=== PATIENT | male | born 1965 | race Caucasian/White ===

== ENCOUNTER 2019-07-14 09:38 | Emergency (ER) | payer MEDICAID ==
[~2019-07-14] VITALS: Ht 188 cm; Wt 181.8 kg
--- NOTE | 2019-07-14 09:52 | NUR ---
Shannon fatima at bedside.
[2019-07-14 10:43] LABS: ALBUMIN 2.6 G/DL (3.4-5.0); ANION GAP 1 (8-16); BLOOD UREA NITROGEN 16 MG/DL (7-18); BUN/CREATININE RATIO 22.2 (5.4-32.0); CALCIUM 8.9 MG/DL (8.5-10.1); CHLORIDE 102 MMOL/L (99-107); CREATININE 0.72 MG/DL (0.60-1.10); GLUCOSE 254 MG/DL (70-104); POTASSIUM 4.3 MMOL/L (3.5-5.1); SODIUM 140 MMOL/L (135-145); TOTAL CARBON DIOXIDE 36.9 MMOL/L (24-32); eGFR > 90 ML/MIN
--- NOTE | 2019-07-14 10:43 | NUR ---
no needs at this time. We will monitor.
--- NOTE | 2019-07-14 12:00 | NUR ---
Patient up sitting on the edge of the bed at this time. patient RA oxygen in at 86%. Spoke with Terri FULTON regarding low oxygen saturation. Oppatrica stated to gait test patient on pulse ox. Patient ambulated approx. 40 feet and oxygen decreased to 82% on RA. Patient back in room now with oxygen at 3.5 L per min with a sat of 91%. Oppehuseyino aware and will place orders.
[2019-07-14] MEDS ORDERED: iohexol 350MG/ML 100ml bottle IV ONE (12:14)
[2019-07-14 12:32] LABS: BASOPHILS # (AUTO) 0.1 X10'3 (0-0.2); BASOPHILS % (AUTO) 0.8 % (0-1); EOSINOPHILS # (AUTO) 0.1 X10'3 (0-0.9); EOSINOPHILS % (AUTO) 1.2 % (0-6); HEMOGLOBIN 15.7 g/dl (14.0-17.9); LYMPHOCYTES # (AUTO) 1.3 X10'3 (1.1-4.8); LYMPHOCYTES % (AUTO) 15.2 % (21-51); MEAN CORPUSCULAR HEMOGLOBIN 27.9 PG (27.0-31.0); MEAN PLATELET VOLUME 7.2 FL (7.4-10.4); MONOCYTES # (AUTO) 0.7 X10'3 (0-0.9); MONOCYTES % (AUTO) 7.9 % (2-12); NEUTROPHILS # (AUTO) 6.4 X10'3 (1.8-7.7); NEUTROPHILS % (AUTO) 74.9 % (42-75); PLATELET COUNT 236 X10'3 (140-440); RED BLOOD COUNT 5.63 X10'6 (4.70-6.10); RED CELL DISTRIBUTION WIDTH 16.3 % (11.5-14.5); WHITE BLOOD COUNT 8.6 X10'3 (4.5-11.0)
--- NOTE | 2019-07-14 12:50 | NUR ---
patient back in the room from ct.
[2019-07-14 12:52] LABS: ALANINE AMINOTRANSFERASE 56 U/L (12-78); ALBUMIN/GLOBULIN RATIO 0.7 (1.1-1.5); ALKALINE PHOSPHATASE 86 IU/L (46-116); ASPARTATE AMINO TRANSFERASE 41 U/L (10-37); BILIRUBIN,DIRECT 0.1 MG/DL (0-0.3); BILIRUBIN,TOTAL 0.5 MG/DL (0.1-1.0); TOTAL PROTEIN 6.2 G/DL (6.4-8.2)
[2019-07-14 14:04] VITALS: BP 157/93
[2019-08-12] MEDS ORDERED: LISI40TA4 PO (17:34)
[2019-08-12] MEDS ORDERED: GLIP5POW MC (17:34)
[2019-08-12] MEDS ORDERED: FURO-150 PO (17:34)
[2019-08-12] MEDS ORDERED: LEVA0.6319 NEB (17:34)
[2019-08-12] MEDS ORDERED: RISP0.253 (17:34)
== END 2019-07-14 14:10 | disposition home or self-care (01) ==
LOC: ER 09:39
DX: I87.2 Venous insufficiency (chronic) (peripheral) (principal); G47.33 Obstructive sleep apnea (adult) (pediatric); R09.02 Hypoxemia; E11.9 Type 2 diabetes mellitus without complications; R05 Cough; F17.200 Nicotine dependence, unspecified, uncomplicated; Z56.0 Unemployment, unspecified
CPT/HCPCS: 36415; 71275; 80048; 80076; 83880; 84484; 85025; 93005; 99285; Q9967

== ENCOUNTER 2019-07-19 12:07 | Emergency (ER) | payer MEDICAID ==
[~2019-07-19] VITALS: Ht 188 cm; Wt 189.0 kg
[2019-07-19 12:48] LABS: BASOPHILS % (AUTO) 0.5 % (0-1); EOSINOPHILS # (AUTO) 0.1 X10'3 (0-0.9); EOSINOPHILS % (AUTO) 1.1 % (0-6); HEMOGLOBIN 15.9 g/dl (14.0-17.9); LYMPHOCYTES # (AUTO) 1.3 X10'3 (1.1-4.8); LYMPHOCYTES % (AUTO) 14.9 % (21-51); MEAN CORPUSCULAR HEMOGLOBIN 27.6 PG (27.0-31.0); MEAN CORPUSCULAR HGB CONC 31.7 g/dL (33.0-36.5); MEAN CORPUSCULAR VOLUME 86.8 FL (78-98); MEAN PLATELET VOLUME 6.8 FL (7.4-10.4); MONOCYTES # (AUTO) 0.7 X10'3 (0-0.9); MONOCYTES % (AUTO) 8.3 % (2-12); NEUTROPHILS # (AUTO) 6.6 X10'3 (1.8-7.7); NEUTROPHILS % (AUTO) 75.2 % (42-75); PLATELET COUNT 248 X10'3 (140-440); RED BLOOD COUNT 5.75 X10'6 (4.70-6.10); RED CELL DISTRIBUTION WIDTH 16.3 % (11.5-14.5); WHITE BLOOD COUNT 8.8 X10'3 (4.5-11.0)
[2019-07-19 13:02] LABS: ALANINE AMINOTRANSFERASE 67 U/L (12-78); ALBUMIN 2.8 G/DL (3.4-5.0); ALBUMIN/GLOBULIN RATIO 0.8 (1.1-1.5); ALKALINE PHOSPHATASE 81 IU/L (46-116); ANION GAP 0 (8-16); ASPARTATE AMINO TRANSFERASE 36 U/L (10-37); BILIRUBIN,TOTAL 0.7 MG/DL (0.1-1.0); BLOOD UREA NITROGEN 15 MG/DL (7-18); BUN/CREATININE RATIO 20.3 (5.4-32.0); CALCIUM 8.5 MG/DL (8.5-10.1); CHLORIDE 103 MMOL/L (99-107); CREATININE 0.74 MG/DL (0.60-1.10); GLUCOSE 299 MG/DL (70-104); POTASSIUM 4.6 MMOL/L (3.5-5.1); SODIUM 139 MMOL/L (135-145); TOTAL PROTEIN 6.3 G/DL (6.4-8.2); eGFR > 90 ML/MIN
[2019-07-19] MEDS ORDERED: furosemide 10 MG/1 ML 10ml inj IV ONE (13:05)
[2019-07-19 13:25] LABS: MAGNESIUM 1.8 MG/DL (1.5-2.4)
[2019-07-19 14:55] VITALS: BP 150/75
== END 2019-07-19 14:58 | disposition home or self-care (01) ==
LOC: ER 12:07
DX: R60.0 Localized edema (principal); I11.0 Hypertensive heart disease with heart failure; M79.661 Pain in right lower leg; M79.662 Pain in left lower leg; J44.9 Chronic obstructive pulmonary disease, unspecified; I50.9 Heart failure, unspecified; E11.9 Type 2 diabetes mellitus without complications; Z59.0 Homelessness; Z56.0 Unemployment, unspecified
CPT/HCPCS: 36415; 71045; 80053; 83735; 84484; 85025; 93005; 96374; 99285; J1940

== ENCOUNTER 2019-09-23 06:10 | Emergency (ER) | payer MEDICAID ==
[~2019-09-23] VITALS: Ht 188 cm; Wt 186.4 kg
[~2019-09-23 06:10] MED LIST: BENZ1TAB7 PO; FURO-150 PO; GLIP10TA11 PO; IPRA3AMP31 IH; LISI-604 PO; PRED20TA PO; RISP3TAB3 PO
[2019-09-23 06:20] VITALS: BP 135/72
[2019-09-23] MEDS ORDERED: LIDOcaine 1% W/epiNEPHrine 1:200,000 10ml vial IJ ONE (06:30)
[2019-09-23] MEDS ORDERED: SULF1TAB49 PO (06:31)
== END 2019-09-23 07:03 | disposition home or self-care (01) ==
LOC: ER 06:10
DX: L02.415 Cutaneous abscess of right lower limb (principal); M79.651 Pain in right thigh; I11.0 Hypertensive heart disease with heart failure; I50.9 Heart failure, unspecified; J45.909 Unspecified asthma, uncomplicated; J43.9 Emphysema, unspecified; E11.9 Type 2 diabetes mellitus without complications; F15.90 Other stimulant use, unspecified, uncomplicated; Z86.14 Personal history of Methicillin resistant Staphylococcus aureus infection; Z98.890 Other specified postprocedural states; Z56.0 Unemployment, unspecified; Z59.0 Homelessness; Z79.899 Other long term (current) drug therapy; Z79.2 Long term (current) use of antibiotics
CPT/HCPCS: 10060; 99283

== ENCOUNTER 2019-11-07 09:04 | Inpatient (IN) | payer MEDICAID ==
[~2019-11-07] VITALS: Ht 188 cm; Wt 190.9 kg
[2019-11-07 09:53] LABS: BASOPHILS # (AUTO) 0.1 X10'3 (0-0.2); BASOPHILS % (AUTO) 0.6 % (0-1); EOSINOPHILS # (AUTO) 0.1 X10'3 (0-0.9); EOSINOPHILS % (AUTO) 1.4 % (0-6); HEMATOCRIT 49.2 % (42.0-52.0); LYMPHOCYTES # (AUTO) 1.5 X10'3 (1.1-4.8); LYMPHOCYTES % (AUTO) 14.7 % (21-51); MEAN CORPUSCULAR HEMOGLOBIN 28.7 PG (27.0-31.0); MEAN CORPUSCULAR HGB CONC 32.5 g/dL (33.0-36.5); MEAN CORPUSCULAR VOLUME 88.5 FL (78-98); MONOCYTES # (AUTO) 0.8 X10'3 (0-0.9); MONOCYTES % (AUTO) 7.7 % (2-12); NEUTROPHILS # (AUTO) 7.6 X10'3 (1.8-7.7); NEUTROPHILS % (AUTO) 75.6 % (42-75); PLATELET COUNT 206 X10'3 (140-440); RED BLOOD COUNT 5.56 X10'6 (4.70-6.10); RED CELL DISTRIBUTION WIDTH 16.8 % (11.5-14.5)
--- NOTE | 2019-11-07 10:00 | NUR ---
Attempted to call report. Told "there was no RN for this pt." Ortho staff will call when resolved. ED CRMahamed Brannon notified.
[2019-11-07 10:07] LABS: ALANINE AMINOTRANSFERASE 36 U/L (12-78); ALBUMIN 2.9 G/DL (3.4-5.0); ALBUMIN/GLOBULIN RATIO 0.9 (1.1-1.5); ALKALINE PHOSPHATASE 66 IU/L (46-116); ANION GAP -2 (8-16); ASPARTATE AMINO TRANSFERASE 30 U/L (10-37); BILIRUBIN,TOTAL 0.5 MG/DL (0.1-1.0); BLOOD UREA NITROGEN 17 MG/DL (7-18); CALCIUM 8.3 MG/DL (8.5-10.1); CHLORIDE 102 MMOL/L (99-107); CREATININE 0.74 MG/DL (0.60-1.10); GLUCOSE 216 MG/DL (70-104); POTASSIUM 4.6 MMOL/L (3.5-5.1); SODIUM 138 MMOL/L (135-145); TOTAL CARBON DIOXIDE 37.9 MMOL/L (24-32); TOTAL PROTEIN 6.3 G/DL (6.4-8.2); eGFR > 90 ML/MIN
[2019-11-07 10:14] LABS: TROPONIN I < 0.04 NG/ML (0.0-0.05)
--- NOTE | 2019-11-07 10:20 | NUR ---
Called ortho x2 for report.
[2019-11-07] MEDS ORDERED: furosemide 10 MG/1 ML 10ml inj IV ONE (10:30)
[2019-11-07 10:31] LABS: ABG BASE EXCESS 6.4 mmol/L (-2.0-2.0); ABG HCO3 37.9 mmol/L (22.0-26.0); ABG OXYGEN SATURATION 86.9 % (94-97); ABG PCO2 (T) 87.1 mmHg (35.0-48.0); ABG PO2 (T) 61.7 mmHg (75.0-100.0); ALLEN'S TEST POSITIVE; FCOHb 2.1 % (0.0-3.9); FLOW 4 L/min; FMetHb 0.2 % (0.0-1.5); FO2Hb 84.9 % (94-97); TOTAL HEMOGLOBIN 17.1 G/dl (14.0-18.0)
[2019-11-07] MEDS ORDERED: HYDROcodone/acetaminophen 5mg/325mg tablet PO PRN ×2 (11:05→15:20)
[2019-11-07] MEDS ORDERED: magnesium Cl slow-release 64mg tablet PO PRN (11:05)
[2019-11-07] MEDS ORDERED: magnesium 4gm in 100ml NS 100 ML IV PRN (11:05)
[2019-11-07] MEDS ORDERED: metoclopramide 5 mg/ml inj IV PRN (11:05)
[2019-11-07] MEDS ORDERED: potassium CL 10mEq/100ml bag 100 ML IV PRN ×2 (11:05)
[2019-11-07] MEDS ORDERED: ondansetron/PF 4mg/2ml inj IV PRN (11:05)
[2019-11-07] MEDS ORDERED: bisacodyl 10mg suppository rectal RC PRN (11:05)
[2019-11-07] MEDS ORDERED: HYDROcodone/acetaminophen 10/325mg tab PO PRN ×2 (11:05→15:20)
[2019-11-07] MEDS ORDERED: mag hydrox/Alum hydrox/simeth 30ml oral suspension PO PRN (11:05)
[2019-11-07] MEDS ORDERED: acetaminophen 325mg tablet PO PRN ×2 (11:05)
[2019-11-07] MEDS ORDERED: potassium Cl 20 mEq SR tablet PO PRN ×2 (11:05)
[2019-11-07] MEDS ORDERED: magnesium 2GM in 50ml NS 50 ML IV PRN (11:05)
[2019-11-07] MEDS ORDERED: magnesium hydroxide 30ml (MOM) UD suspension PO PRN (11:05)
[2019-11-07] MEDS ORDERED: ALBU18HF2 IH (12:34)
[2019-11-07] MEDS ORDERED: BUDE10.27 IH (12:34)
[2019-11-07] MEDS ORDERED: GLIP10TA11 PO (12:34)
[2019-11-07] MEDS ORDERED: BENZ1TAB7 PO (12:34)
[2019-11-07] MEDS ORDERED: RISP3TAB3 PO (12:34)
[2019-11-07] MEDS ORDERED: FURO-149 PO (12:34)
[2019-11-07] MEDS ORDERED: LISI-604 PO (12:34)
[2019-11-07] MEDS ORDERED: HUM10VIA SQ (12:34)
[2019-11-07 12:36] LABS: ABG BASE EXCESS 5.7 mmol/L (-2.0-2.0); ABG HCO3 36.5 mmol/L (22.0-26.0); ABG OXYGEN SATURATION 96.9 % (94-97); ABG PCO2 (T) 81.7 mmHg (35.0-48.0); ABG PO2 (T) 102.8 mmHg (75.0-100.0); ALLEN'S TEST POSITIVE; FCOHb 1.7 % (0.0-3.9); FMetHb 0.3 % (0.0-1.5); RESPIRATORY RATE 20 b/min
--- NOTE | 2019-11-07 12:50 | NUR ---
Debora PENDLETON from [facility] called for report
--- NOTE | 2019-11-07 12:53 | NUR ---
Patient in room ED 1. I have received report from KEERTHI Holder and had the opportunity to ask questions and assume patient care.
[2019-11-07 13:00] VITALS: BP 144/82
[2019-11-07 15:00] VITALS: BP 114/65
[2019-11-07 15:06] LABS: ABG OXYGEN SATURATION 98.2 % (94-97); ABG PCO2 (T) 83.6 mmHg (35.0-48.0); ABG PO2 (T) 127.9 mmHg (75.0-100.0); ALLEN'S TEST POSITIVE; FCOHb 1.4 % (0.0-3.9); FMetHb 0.2 % (0.0-1.5); FO2Hb 96.6 % (94-97); RESPIRATORY RATE 24 b/min; TIDAL VOLUME 724 mL; TOTAL HEMOGLOBIN 16.9 G/dl (14.0-18.0)
--- NOTE | 2019-11-07 15:17 | NUR ---
PAGER ID: [phone] MESSAGE: Jose Martin Moreno [phone]. ABG just back CO2 83.6, which is higher than his last one 3 hours ago in ER, which was 81.7. Worried about him. Please advise, Debora DELAROSA [phone]
[2019-11-07 16:16] LABS: ABG BASE EXCESS 5.1 mmol/L (-2.0-2.0); ABG HCO3 35.6 mmol/L (22.0-26.0); ABG OXYGEN SATURATION 96.4 % (94-97); ABG PCO2 (T) 79.9 mmHg (35.0-48.0); ABG PO2 (T) 93.6 mmHg (75.0-100.0); ALLEN'S TEST POSITIVE; FCOHb 1.4 % (0.0-3.9); FMetHb 0.2 % (0.0-1.5); FO2Hb 94.9 % (94-97); RESPIRATORY RATE 25 b/min; TOTAL HEMOGLOBIN 16.6 G/dl (14.0-18.0)
[2019-11-07 17:18] LABS: URINE AMPHETAMINE SCREEN NEGATIVE (Neg); URINE BARBITUATE SCREEN NEGATIVE (Neg); URINE BENZODIAZEPINES SCREEN NEGATIVE (Neg); URINE CANNABINOID SCREEN NEGATIVE (Neg); URINE COCAINE SCREEN NEGATIVE (Neg); URINE METHADONE SCREEN NEGATIVE (Neg); URINE OPIATE SCREEN NEGATIVE (Neg); URINE PHENCYCLIDINE SCREEN NEGATIVE (Neg)
[2019-11-07 17:30] LABS: CLARITY,URINE CLEAR (Clear); COLOR,URINE YELLOW (Yellow); GLUCOSE, URINE >=1000 mg/dl (Neg); KETONES,URINE NEGATIVE (Neg); LEUKOCYTE ESTERASE ,URINE NEGATIVE (Neg); NITRITES, URINE NEGATIVE (Neg); OCCULT BLOOD,URINE NEGATIVE (Neg); PH,URINE 6.5 (4.8-8.0); PROTEIN,URINE 30 mg/dl (Neg)
[2019-11-07 17:33] LABS: UA COLLECTION TYPE VOIDED
[2019-11-07 17:39] LABS: MUCUS STRANDS FEW /LPF (Neg); SQUAMOUS EPITHELIAL CELL,UR FEW /LPF (FEW)
[2019-11-07 17:40] LABS: BACTERIA,URINE NONE SEEN /HPF (Neg); RBC,URINE 0-2 /HPF (0-2); WBC,URINE NONE SEEN /HPF (0-4)
--- NOTE | 2019-11-07 17:58 | NUR ---
Awaiting orders from Nepo...PAGER ID: [phone] MESSAGE: Arlene Moreno [phone]. Wishes to be a DNR, please come and talk to him when you can. Thanks, Debora DELAROSA [phone]
[2019-11-07 18:00] VITALS: BP 143/81
--- NOTE | 2019-11-07 18:30 | NUR ---
Patient in room PCU 3018. I have received report from Debora PENDLETON and had the opportunity to ask questions and assume patient care.
--- NOTE | 2019-11-07 18:48 | NUR ---
Problems reprioritized. Patient report given, questions answered & plan of care reviewed with Yong RN.
--- NOTE | 2019-11-07 19:05 | NUR ---
PAGER ID: [phone] MESSAGE: Sukhwinder Moreno, [id number]- pt is DM2 with a dinner BS of 190. no inulin orders are in, please place DM medication orders.
[2019-11-07] MEDS ORDERED: ipratropium/albuterol 3ml nebule NEB PRN (19:15)
[2019-11-07] MEDS ORDERED: methylPREDNISolone sod succ 125mg/2ml vial IV ONE (19:15)
[2019-11-07] MEDS: methylPREDNISolone sod succ 125mg/2ml vial IV SCH (19:32)
[2019-11-07] MEDS: K and/or MAG REPLACEMENT MC SCH (19:41)
[2019-11-07] MEDS ORDERED: budesonide 0.5mg/2ml UD nebule IH SCH (20:00)
[2019-11-07] MEDS ORDERED: furosemide 40mg/4ml inj IV SCH (20:00)
[2019-11-07] MEDS ORDERED: enoxaparin 40mg/0.4ml syringe SQ SCH (20:00)
[2019-11-07] MEDS: albuterol 2.5 MG/3 ML nebule NEB SCH (20:37)
[2019-11-07] MEDS ORDERED: temazepam 15mg capsule PO PRN (21:00)
[2019-11-07] MEDS ORDERED: glucagon, human recombinant 1mg kit SUBCUT PRN (21:45)
[2019-11-07] MEDS ORDERED: dextrose 50%-water 50ml dispensing syringe IV PRN ×2 (21:45)
[2019-11-07] MEDS ORDERED: MESSAGE TO PHARMACY PO ONE (21:45)
[2019-11-07] MEDS ORDERED: dextrose ORAL solution 15 GM/59 ML bottle PO PRN ×2 (21:45)
[2019-11-07 22:00] VITALS: BP 133/73
--- NOTE | 2019-11-07 22:15 | NUR ---
NOTIFIED PAGER ID: [phone] MESSAGE: Sukhwinder Moreno, [id number]- pt O2 sat dropping to 70s with NC@4L, pt refuses to wear Bipap, he states he is DNR because he doest want bipap and that he just wants "god to take him in his sleep". please call [phone] Yong PENDLETON
[2019-11-07 22:52] LABS: HEMOGLOBIN A1C 9.9 % (4.5-6.2)
[2019-11-07] MEDS ORDERED: ipratropium/albuterol 3ml nebule NEB SCH (23:00)
[2019-11-08 02:00] VITALS: BP 107/64
[2019-11-08] MEDS: methylPREDNISolone sod succ 125mg/2ml vial IV SCH (02:00)
--- NOTE | 2019-11-08 02:27 | NUR ---
pt pulled his IV out in his sleep, he is refusing a new one at this time and the IV medication solumedrol that is due at this time. pt states that he may be willing to try a new IV start later.
[2019-11-08] MEDS: albuterol 2.5 MG/3 ML nebule NEB SCH (03:05)
[2019-11-08 05:56] LABS: ALANINE AMINOTRANSFERASE 41 U/L (12-78); ALBUMIN 3.2 G/DL (3.4-5.0); ALBUMIN/GLOBULIN RATIO 0.7 (1.1-1.5); ALKALINE PHOSPHATASE 81 IU/L (46-116); ANION GAP 3 (8-16); ASPARTATE AMINO TRANSFERASE 28 U/L (10-37); BILIRUBIN,TOTAL 0.5 MG/DL (0.1-1.0); BLOOD UREA NITROGEN 23 MG/DL (7-18); CHLORIDE 98 MMOL/L (99-107); CREATININE 0.82 MG/DL (0.60-1.10); GLUCOSE 383 MG/DL (70-104); MAGNESIUM 1.9 MG/DL (1.5-2.4); SODIUM 136 MMOL/L (135-145); TOTAL CARBON DIOXIDE 34.7 MMOL/L (24-32); TOTAL PROTEIN 7.5 G/DL (6.4-8.2); eGFR > 90 ML/MIN
[2019-11-08 06:01] LABS: BASOPHILS % (AUTO) 0.2 % (0-1); EOSINOPHILS % (AUTO) 0 % (0-6); HEMATOCRIT 54.6 % (42.0-52.0); HEMOGLOBIN 17.8 g/dl (14.0-17.9); LYMPHOCYTES # (AUTO) 0.6 X10'3 (1.1-4.8); LYMPHOCYTES % (AUTO) 7.1 % (21-51); MEAN CORPUSCULAR HEMOGLOBIN 29.3 PG (27.0-31.0); MEAN CORPUSCULAR HGB CONC 32.5 g/dL (33.0-36.5); MEAN CORPUSCULAR VOLUME 90.1 FL (78-98); MEAN PLATELET VOLUME 7.4 FL (7.4-10.4); MONOCYTES # (AUTO) 0.1 X10'3 (0-0.9); MONOCYTES % (AUTO) 0.8 % (2-12); NEUTROPHILS # (AUTO) 7.4 X10'3 (1.8-7.7); NEUTROPHILS % (AUTO) 91.9 % (42-75); PLATELET COUNT 234 X10'3 (140-440); RED BLOOD COUNT 6.06 X10'6 (4.70-6.10); RED CELL DISTRIBUTION WIDTH 16.9 % (11.5-14.5); WHITE BLOOD COUNT 8.1 X10'3 (4.5-11.0)
--- NOTE | 2019-11-08 06:26 | NUR ---
Problems reprioritized. Patient report given, questions answered & plan of care reviewed with Debora PENDLETON.
--- NOTE | 2019-11-08 06:37 | NUR ---
Patient in room PCU 3018. I have received report from Everardo PENDLETON and had the opportunity to ask questions and assume patient care.
--- NOTE | 2019-11-08 06:37 | NUR ---
Patient in room PCU 3018. I have received report from KEERTHI Beach and had the opportunity to ask questions and assume patient care.
[2019-11-08 07:00] VITALS: BP 161/89
--- NOTE | 2019-11-08 07:07 | NUR ---
Page to Sarah... PAGER ID: [phone] MESSAGE: Patient Sukhwinder Moreno [id number]. Went on Comfort care last night per nurse but patient seems confused about it. Call me when you can I will explain. Thank, Debora Radha [phone]
--- NOTE | 2019-11-08 07:52 | NUR ---
Paged Dr Agustin "PAGER ID: [phone] MESSAGE: [phone] Margo [phone] Sukhwinder Moreno patient went DNR/Comfort Care last night. Can we get a house convenience order with no tele?"
[2019-11-08] MEDS ORDERED: enoxaparin 40mg/0.4ml syringe SUBCUT SCH (08:00)
[2019-11-08] MEDS ORDERED: benztropine 1mg tablet PO SCH (08:00)
[2019-11-08] MEDS: K and/or MAG REPLACEMENT MC SCH (08:00)
[2019-11-08] MEDS ORDERED: risperiDONE 2mg tablet PO SCH (08:00)
[2019-11-08] MEDS ORDERED: lisinopril 5mg tablet PO SCH (08:00)
[2019-11-08] MEDS: insulin Lispro (HumaLOG) vial - multi-dose SQ SCH ×2 (08:49→12:59)
[2019-11-08] MEDS ORDERED: furosemide 40mg tablet PO SCH (10:05)
--- NOTE | 2019-11-08 10:07 | NUR ---
O2 Sat at rest on room air:_84__% If below 89%: Recovery O2 Sat at rest on _2__LPM:_91__% via__nasal cannula (mask/nasal cannula, etc..) No further documentation is necessary. If O2 Sat did not drop below 89% on room air,ambulate patient on room air. O2 Sat while ambulating on room air:___% Recovery O2 Sat while ambulating on ___LPM:___% No further documentation is necessary. If patient does not drop below 89% while ambulating, he/she does not qualify for home O2.
[2019-11-08] MEDS ORDERED: HYDROcodone/acetaminophen 5mg/325mg tablet PO PRN (10:42)
[2019-11-08 11:00] VITALS: BP 114/73
--- NOTE | 2019-11-08 11:07 | NUR ---
Pt has no IV, doctor aware.
[2019-11-08 15:00] VITALS: BP 97/51
--- NOTE | 2019-11-08 15:19 | NUR ---
DM consult: Pt with A1c 9.9%. Attempted visit with pt however pt sleeping and did not wake with verbal cues. Written DM education and RD contact information left at patient's bedside. A1c is down from 10.3% in July of this year per records. Noted that pt documented with 100% PO intake on heart healthy CHO controlled diet, d/w dietary to send double protein TID for satiety. Will continue to follow and monitor need for f/u verbal education. Addendum: 11/08/19 at [address] Amended: Links added.
--- NOTE | 2019-11-08 17:55 | NUR ---
Pt stable for discharge per MD order, all discharge instructions reviewed with patient and all questions answered. New prescription faxed to pharmacy. PIV discontinued, cannula intact. Telemetry discontinued, telephone assembler notified. All belongings collected and sent with patient. Patient picked up by taxi, wheeled to lobby by staff.
[2019-11-08] MEDS ORDERED: insulin glargine (Lantus) pen - multi-dose SQ SCH (21:00)
== END 2019-11-08 17:27 | disposition home or self-care (01) | DRG 133 ==
LOC: ER 09:04 → ED HOLD 11:05 → PCU 3S 13:25
PROVIDERS: ADMIT Family Medicine; ATTEND Family Medicine
PROC: 5A09357 Assistance with Respiratory Ventilation, Less than 24 Consecutive Hours, Continuous Positive Airway Pressure (ICD-10-PCS; principal; 2019-11-07)
DX: J96.01 Acute respiratory failure with hypoxia (principal); E11.65 Type 2 diabetes mellitus with hyperglycemia; E66.01 Morbid (severe) obesity due to excess calories; G93.41 Metabolic encephalopathy; I11.0 Hypertensive heart disease with heart failure; I50.33 Acute on chronic diastolic (congestive) heart failure; J43.9 Emphysema, unspecified; Z66 Do not resuscitate; F15.90 Other stimulant use, unspecified, uncomplicated; F32.9 Major depressive disorder, single episode, unspecified; J96.02 Acute respiratory failure with hypercapnia; Z59.0 Homelessness; Z87.891 Personal history of nicotine dependence; Z90.81 Acquired absence of spleen; Z68.43 Body mass index [BMI] 50.0-59.9, adult
CPT/HCPCS: 36415; 36600; 71046; 80053; 80305; 81001; 82803; 82948; 83036; 83735; 83880; 84484; 85018; 85025; 87081; 93005; 94640; 94660; 94760; 99285; G0378; J1650; J1815; J1940; J2930; J7626

== ENCOUNTER 2019-12-14 11:44 | Inpatient (IN) | payer MEDICAID ==
[~2019-12-14] VITALS: Ht 188 cm; Wt 204.6 kg
[~2019-12-14 11:44] MED LIST changes: +ALBU18HF2 IH; -BENZ1TAB7 PO; +FURO-149 PO; -FURO-150 PO; +HUM10VIA SQ; -IPRA3AMP31 IH; -PRED20TA PO
[2019-12-14] MEDS ORDERED: acetaminophen 325mg tablet PO STA (11:51)
[2019-12-14] MEDS ORDERED: piperacillin/tazo 3.375gm/50ml 50 ML IV ONE (11:55)
[2019-12-14] MEDS ORDERED: vancomycin/NS 1 GM ADD-VANTAGE 250 ML IV ONE (11:55)
[2019-12-14 12:10] LABS: BASOPHILS % (AUTO) 0.4 % (0-1); EOSINOPHILS # (AUTO) 0.2 X10'3 (0-0.9); EOSINOPHILS % (AUTO) 1.9 % (0-6); HEMOGLOBIN 15.8 g/dl (14.0-17.9); LYMPHOCYTES # (AUTO) 1.4 X10'3 (1.1-4.8); LYMPHOCYTES % (AUTO) 16.1 % (21-51); MEAN CORPUSCULAR HGB CONC 32.2 g/dL (33.0-36.5); MEAN CORPUSCULAR VOLUME 90.1 FL (78-98); MONOCYTES # (AUTO) 0.8 X10'3 (0-0.9); MONOCYTES % (AUTO) 9.2 % (2-12); NEUTROPHILS # (AUTO) 6.1 X10'3 (1.8-7.7); NEUTROPHILS % (AUTO) 72.4 % (42-75); PLATELET COUNT 200 X10'3 (140-440); RED BLOOD COUNT 5.43 X10'6 (4.70-6.10); RED CELL DISTRIBUTION WIDTH 14.8 % (11.5-14.5); WHITE BLOOD COUNT 8.4 X10'3 (4.5-11.0)
[2019-12-14] MEDS ORDERED: furosemide 10 MG/1 ML 10ml inj IV ONE (12:50)
[2019-12-14 12:51] LABS: ALANINE AMINOTRANSFERASE 30 U/L (12-78); ALBUMIN 2.9 G/DL (3.4-5.0); ALBUMIN/GLOBULIN RATIO 0.8 (1.1-1.5); ALKALINE PHOSPHATASE 71 IU/L (46-116); ANION GAP -1 (8-16); ASPARTATE AMINO TRANSFERASE 21 U/L (10-37); BILIRUBIN,TOTAL 0.5 MG/DL (0.1-1.0); BLOOD UREA NITROGEN 17 MG/DL (7-18); BUN/CREATININE RATIO 27.9 (5.4-32.0); CALCIUM 8.9 MG/DL (8.5-10.1); CHLORIDE 100 MMOL/L (99-107); CREATININE 0.61 MG/DL (0.60-1.10); GLUCOSE 248 MG/DL (70-104); POTASSIUM 4.4 MMOL/L (3.5-5.1); SODIUM 137 MMOL/L (135-145); TOTAL CARBON DIOXIDE 37.8 MMOL/L (24-32); TOTAL PROTEIN 6.5 G/DL (6.4-8.2); eGFR > 90 ML/MIN
[2019-12-14 14:45] LABS: CLARITY,URINE CLEAR (Clear); COLOR,URINE YELLOW (Yellow); GLUCOSE, URINE >=1000 mg/dl (Neg); KETONES,URINE NEGATIVE (Neg); LEUKOCYTE ESTERASE ,URINE NEGATIVE (Neg); NITRITES, URINE NEGATIVE (Neg); OCCULT BLOOD,URINE NEGATIVE (Neg); PH,URINE 6.5 (4.8-8.0); PROTEIN,URINE TRACE mg/dl (Neg)
[2019-12-14 14:49] LABS: UA COLLECTION TYPE NON-SPECIFIED
[2019-12-14 15:00] LABS: BACTERIA,URINE FEW /HPF (Neg); SQUAMOUS EPITHELIAL CELL,UR MODERATE /LPF (FEW)
[2019-12-14 15:01] LABS: RBC,URINE 0-2 /HPF (0-2); WBC,URINE 0-4 /HPF (0-4)
[2019-12-14] MEDS ORDERED: magnesium Cl slow-release 64mg tablet PO PRN (15:20)
[2019-12-14] MEDS ORDERED: MESSAGE TO PHARMACY PO ONE (15:20)
[2019-12-14] MEDS ORDERED: mag hydrox/Alum hydrox/simeth 30ml oral suspension PO PRN (15:20)
[2019-12-14] MEDS ORDERED: magnesium 4gm in 100ml NS 100 ML IV PRN (15:20)
[2019-12-14] MEDS ORDERED: magnesium 2GM in 50ml NS 50 ML IV PRN (15:20)
[2019-12-14] MEDS ORDERED: glucagon, human recombinant 1mg kit SUBCUT PRN (15:20)
[2019-12-14] MEDS ORDERED: potassium Cl 20 mEq SR tablet PO PRN ×2 (15:20)
[2019-12-14] MEDS ORDERED: dextrose ORAL solution 15 GM/59 ML bottle PO PRN ×2 (15:20)
[2019-12-14] MEDS ORDERED: morphine 2 MG/ML inj. syringe IV PRN ×2 (15:20)
[2019-12-14] MEDS ORDERED: potassium CL 10mEq/100ml bag 100 ML IV PRN ×2 (15:20)
[2019-12-14] MEDS ORDERED: HYDROcodone/acetaminophen 5mg/325mg tablet PO PRN (15:20)
[2019-12-14] MEDS ORDERED: dextrose 50%-water 50ml dispensing syringe IV PRN ×2 (15:20)
[2019-12-14] MEDS ORDERED: HYDROcodone/acetaminophen 10/325mg tab PO PRN (15:20)
[2019-12-14] MEDS ORDERED: ondansetron/PF 4mg/2ml inj IV PRN (15:20)
[2019-12-14] MEDS ORDERED: acetaminophen 325mg tablet PO PRN ×2 (15:20)
[2019-12-14] MEDS ORDERED: albuterol 2.5 MG/3 ML nebule NEB PRN (15:45)
[2019-12-14 16:30] VITALS: BP 119/59
--- NOTE | 2019-12-14 18:15 | NUR ---
Problems reprioritized. Patient report given, questions answered & plan of care reviewed with KEERTHI Palencia.
[2019-12-14 18:18] VITALS: BP 116/71
--- NOTE | 2019-12-14 19:24 | NUR ---
Patient is non-compliant. Refused the blood draw for the troponin for 1750.
[2019-12-14] MEDS: docusate sod 100mg capsule PO SCH (19:57)
[2019-12-14] MEDS: furosemide 10 MG/1 ML 10ml inj IV SCH (19:58)
[2019-12-14] MEDS: heparin, porcine 5000 units/ml vial SQ SCH (19:58)
[2019-12-14] MEDS ORDERED: HumuLIN NPH/Reg 70/30 insulin 10ml vial SQ SCH (20:00)
[2019-12-14] MEDS: K and/or MAG REPLACEMENT MC SCH (20:00)
[2019-12-14] MEDS: insulin glargine (Lantus) pen - multi-dose SQ SCH (21:00)
[2019-12-14] MEDS ORDERED: temazepam 15mg capsule PO PRN (21:00)
--- NOTE | 2019-12-14 21:00 | NUR ---
Patient is non-compliant. Refused to check his blood sugar.
[2019-12-14 23:26] VITALS: BP 126/64
--- NOTE | 2019-12-14 23:56 | NUR ---
Patient is non-compliant refused the 12hr blood draw for the troponin at 2351. Shell, the charge nurse is aware of the issue.
[2019-12-15] VITALS (7 sets, daily range): BP systolic 89–131; BP diastolic 36–74
--- NOTE | 2019-12-15 00:31 | NUR ---
Patient has hx of sleep apnea, and his O2 Sat drops to low to mid 70's despite being on 2L O2 NC. Patient refused change in position and does not want to be bothered at all despite educating him.
--- NOTE | 2019-12-15 03:14 | NUR ---
Called DR. Hutchinson regarding the patient's O2 Sat being unstable in 2L O2 NC to 50's, 60's. Patient was put on 4L O2 NC and the O2 sat still in 70's. The non-rebreather applied to the patient the O2 sat is at 98. Dr. Hutchinson acknowledge the issue. No orders were given at this time.
--- NOTE | 2019-12-15 03:27 | NUR ---
Patient refused to check his blood sugar at this time.
--- NOTE | 2019-12-15 03:31 | NUR ---
Patient refuse to check his vitals at this time. Charge Nurse- Yoselin is aware of the issue. Addendum: 12/15/19 at 0339 by Talha Fernandez RN Patient on 3L O2 NC. Does not want the non-rebreather. O2 Sat in 70's to low 90s, and unstable.
[2019-12-15 06:00] LABS: ALANINE AMINOTRANSFERASE 32 U/L (12-78); ALBUMIN 3.2 G/DL (3.4-5.0); ALBUMIN/GLOBULIN RATIO 0.8 (1.1-1.5); ALKALINE PHOSPHATASE 78 IU/L (46-116); ANION GAP 2 (8-16); ASPARTATE AMINO TRANSFERASE 26 U/L (10-37); BILIRUBIN,TOTAL 0.5 MG/DL (0.1-1.0); BLOOD UREA NITROGEN 16 MG/DL (7-18); BUN/CREATININE RATIO 20.5 (5.4-32.0); CALCIUM 9.2 MG/DL (8.5-10.1); CHLORIDE 97 MMOL/L (99-107); CREATININE 0.78 MG/DL (0.60-1.10); GLUCOSE 302 MG/DL (70-104); MAGNESIUM 1.8 MG/DL (1.5-2.4); POTASSIUM 4.5 MMOL/L (3.5-5.1); SODIUM 140 MMOL/L (135-145); TOTAL PROTEIN 7.3 G/DL (6.4-8.2); TROPONIN I < 0.04 NG/ML (0.0-0.05); eGFR > 90 ML/MIN
[2019-12-15 06:02] LABS: BASOPHILS % (AUTO) 0.5 % (0-1); EOSINOPHILS # (AUTO) 0.3 X10'3 (0-0.9); EOSINOPHILS % (AUTO) 2.6 % (0-6); HEMOGLOBIN 16.5 g/dl (14.0-17.9); LYMPHOCYTES # (AUTO) 1.9 X10'3 (1.1-4.8); LYMPHOCYTES % (AUTO) 19.2 % (21-51); MEAN CORPUSCULAR HEMOGLOBIN 29.4 PG (27.0-31.0); MEAN CORPUSCULAR HGB CONC 31.6 g/dL (33.0-36.5); MEAN CORPUSCULAR VOLUME 92.8 FL (78-98); MEAN PLATELET VOLUME 7.3 FL (7.4-10.4); MONOCYTES # (AUTO) 0.9 X10'3 (0-0.9); MONOCYTES % (AUTO) 9.4 % (2-12); NEUTROPHILS # (AUTO) 6.6 X10'3 (1.8-7.7); NEUTROPHILS % (AUTO) 68.3 % (42-75); PLATELET COUNT 252 X10'3 (140-440); RED BLOOD COUNT 5.61 X10'6 (4.70-6.10); RED CELL DISTRIBUTION WIDTH 15.1 % (11.5-14.5); WHITE BLOOD COUNT 9.7 X10'3 (4.5-11.0)
--- NOTE | 2019-12-15 06:15 | NUR ---
Problems reprioritized. Patient report given to HeribertoRN, questions answered & plan of care reviewed with .
[2019-12-15 06:24] LABS: TOTAL CARBON DIOXIDE 41.2 MMOL/L (24-32)
--- NOTE | 2019-12-15 06:45 | NUR ---
PAGER ID: [phone] MESSAGE: [phone]. pt. Sukhwinder Moreno. pt. CO2 is 41.2. thank you. Cyndi [phone]
--- NOTE | 2019-12-15 06:55 | NUR ---
Patient in room MED 309. I have received report from KEERTHI Palencia and had the opportunity to ask questions and assume patient care.
--- NOTE | 2019-12-15 07:42 | NUR ---
PAGER ID: [phone] MESSAGE: leo 309. pt. Sukhwinder Moreno. pt. CO2 came back at 41.2. thank you. Cyndi [phone].
[2019-12-15] MEDS: docusate sod 100mg capsule PO SCH ×2 (08:00→19:48)
[2019-12-15] MEDS: K and/or MAG REPLACEMENT MC SCH ×2 (08:00→19:48)
[2019-12-15] MEDS ORDERED: lisinopril 5mg tablet PO SCH (08:00)
[2019-12-15] MEDS: heparin, porcine 5000 units/ml vial SQ SCH ×2 (08:56→19:48)
[2019-12-15] MEDS: furosemide 10 MG/1 ML 10ml inj IV SCH ×2 (08:57→19:47)
[2019-12-15] MEDS: insulin Lispro (HumaLOG) vial - multi-dose SQ SCH ×4 (09:01→22:48)
[2019-12-15] MEDS: risperiDONE 0.5mg tablet PO SCH (09:03)
--- NOTE | 2019-12-15 11:09 | NUR ---
PAGER ID: [phone] MESSAGE: 309: FARRAH - SHEYLA ORDERED, BECOMING MORE OBTUNDED, NEEDS STERNAL TO WAKE NURSE EVI [phone]
[2019-12-15 11:15] LABS: ABG BASE EXCESS 14.2 mmol/L (-2.0-2.0); ABG HCO3 48.9 mmol/L (22.0-26.0); ABG OXYGEN SATURATION 98.6 % (94-97); ABG PCO2 (T) 121.4 mmHg (35.0-48.0); ABG PO2 (T) 148.9 mmHg (75.0-100.0); ALLEN'S TEST Yes; FCOHb 1.6 % (0.0-3.9); FLOW 15 L/min; FMetHb 0.3 % (0.0-1.5); FO2Hb 96.7 % (94-97); TOTAL HEMOGLOBIN 16.7 G/dl (14.0-18.0)
--- NOTE | 2019-12-15 11:22 | NUR ---
PAGER ID: [phone] MESSAGE: leo 309. pt. Sukhwinder Moreno. pt. Erica resulted. RT put pt. on Headstrongap. thank you. Cyndi [phone].
[2019-12-15 15:26] LABS: ABG BASE EXCESS 10.8 mmol/L (-2.0-2.0); ABG HCO3 42.1 mmol/L (22.0-26.0); ABG OXYGEN SATURATION 96.3 % (94-97); ABG PCO2 (T) 89.3 mmHg (35.0-48.0); ABG PO2 (T) 88.8 mmHg (75.0-100.0); ALLEN'S TEST POSITIVE; FCOHb 1.7 % (0.0-3.9); FMetHb 0.1 % (0.0-1.5); FO2Hb 94.6 % (94-97); RESPIRATORY RATE 22 b/min; TOTAL HEMOGLOBIN 15.9 G/dl (14.0-18.0)
--- NOTE | 2019-12-15 15:26 | NUR ---
PAGER ID: [phone] MESSAGE: leo 309. pt. Sukhwinder Moreno. pt. BP is at 89/36 currently. pt. has no PRNs for low BP. please advise. Cyndi [phone]
--- NOTE | 2019-12-15 15:35 | NUR ---
PAGER ID: [phone] MESSAGE: leo 309. pt. Sukhwinder Moreno. pt. sitting up and manual BP was 92/40. thank you. Cyndi [phone]
--- NOTE | 2019-12-15 17:46 | NUR ---
I have reviewed and agree with all medications administered and interventions performed by DRAWING KILN OPERATOR Student Isaiah Bartholomew.
--- NOTE | 2019-12-15 18:00 | NUR ---
the afternoon the pt. was getting agitated being on the BIPAP and though pt. was still somnolent he kept trying to take the BIPAP mask off. RN kept putting it back on him and trying to educate that he needed to keep it on the help lower his CO2 levels and help him breath better. the pt. perked up a few hours later and when the RN tried to put the mask back on him he raised his voice and told them that if they tried to put the mask back on him he was going to get violent, so the RN put the non-rebreather on him and he was compliant with that. around 1700 the RN was walking out of another pt. room and saw him walking down the [place] towards them with his cane in hand. RN stopped the pt. and the pt. told her that he was leaving and that we were trying to kill him here with the mask. RN invited him to sit down in the hallway while they chatted and once nursing staff was able to convince him to just sit near the nurses station for a while the pt. calmed down.
--- NOTE | 2019-12-15 18:23 | NUR ---
Problems reprioritized. Patient report given, questions answered & plan of care reviewed with KEERTHI Hernandez. Addendum: 12/15/19 at 1911 by Josephine Zabala RN Problems reprioritized. Patient report given, questions answered & plan of care reviewed with KEERTHI Almazan.
--- NOTE | 2019-12-15 18:40 | NUR ---
Received report from KEERTHI on phone. Addendum: 12/16/19 at 0402 by Cj Kapadia RN Amended: Links added.
[2019-12-15] MEDS: normal saline 1000ml 1,000 ML IV SCH (19:48)
--- NOTE | 2019-12-15 20:30 | NUR ---
trandsered patient to PCU, report given by Cyndi PENDLETON at shift change/1800
--- NOTE | 2019-12-15 20:40 | NUR ---
Received pt from [facility] unit via w/c oriented to room and routine. RN at bedside with patient. Addendum: 12/16/19 at 0321 by Cj Kapadia RN Amended: Links added.
--- NOTE | 2019-12-15 21:00 | NUR ---
Pt refuses x2RN skin assessment. Addendum: 12/16/19 at 0359 by Cj Kapadia RN Amended: Links added.
--- NOTE | 2019-12-15 21:00 | NUR ---
Pt was brought over without o2 or bipap. sat dropped down to 50's, put on 02 n/c 6 l enc c&db sat up to 91%. Rt paged and in room. Pt has been adamantly refusing bipap. Pt states that is his right and he does not want it "even if I " Pt has been refusing bipap with Rt and Rt is also aware. was notified. Addendum: 12/16/19 at 0334 by Cj Kapadia RN Amended: Links added.
[2019-12-15] MEDS: insulin glargine (Lantus) pen - multi-dose SQ SCH (22:47)
--- NOTE | 2019-12-15 23:00 | NUR ---
Pt desats down in the 70's when fallng asleep. enc c&db sat up to 90% 4 to 6 l n/c. Pt still refusing bipap. Addendum: 12/16/19 at 0337 by Cj Kapadia RN Amended: Links added.
--- NOTE | 2019-12-16 02:00 | NUR ---
pt refuses v/s sat still drops down to 70's when falling asleep. pt refuses bipap woke up enc c&db sat up to 90% on 4 to 6 l n/c. Addendum: 12/16/19 at 0357 by Cj Kapadia RN Amended: Links added.
[2019-12-16 05:27] LABS: BASOPHILS % (AUTO) 0.3 % (0-1); EOSINOPHILS # (AUTO) 0.1 X10'3 (0-0.9); EOSINOPHILS % (AUTO) 1.7 % (0-6); LYMPHOCYTES # (AUTO) 0.9 X10'3 (1.1-4.8); LYMPHOCYTES % (AUTO) 12.9 % (21-51); MEAN CORPUSCULAR VOLUME 90.7 FL (78-98); MEAN PLATELET VOLUME 7.1 FL (7.4-10.4); MONOCYTES # (AUTO) 0.6 X10'3 (0-0.9); MONOCYTES % (AUTO) 8.3 % (2-12); NEUTROPHILS # (AUTO) 5.3 X10'3 (1.8-7.7); NEUTROPHILS % (AUTO) 76.8 % (42-75); PLATELET COUNT 191 X10'3 (140-440); RED BLOOD COUNT 5.18 X10'6 (4.70-6.10); RED CELL DISTRIBUTION WIDTH 14.6 % (11.5-14.5); WHITE BLOOD COUNT 6.9 X10'3 (4.5-11.0)
[2019-12-16 05:34] LABS: ALANINE AMINOTRANSFERASE 27 U/L (12-78); ALBUMIN 2.8 G/DL (3.4-5.0); ALBUMIN/GLOBULIN RATIO 0.7 (1.1-1.5); ALKALINE PHOSPHATASE 70 IU/L (46-116); ANION GAP 1 (8-16); ASPARTATE AMINO TRANSFERASE 19 U/L (10-37); BILIRUBIN,TOTAL 0.6 MG/DL (0.1-1.0); BLOOD UREA NITROGEN 20 MG/DL (7-18); CALCIUM 8.6 MG/DL (8.5-10.1); CHLORIDE 95 MMOL/L (99-107); CREATININE 0.69 MG/DL (0.60-1.10); GLUCOSE 229 MG/DL (70-104); MAGNESIUM 1.7 MG/DL (1.5-2.4); POTASSIUM 4.5 MMOL/L (3.5-5.1); SODIUM 139 MMOL/L (135-145); TOTAL PROTEIN 6.6 G/DL (6.4-8.2); eGFR > 90 ML/MIN
[2019-12-16 06:00] VITALS: BP 113/55
[2019-12-16] MEDS: normal saline 1000ml 1,000 ML IV SCH ×3 (06:13→21:33)
--- NOTE | 2019-12-16 06:30 | NUR ---
Problems reprioritized. Patient report given, questions answered & plan of care reviewed with Pietro Pinzon. Addendum: 12/16/19 at 0650 by Cj Kapadia RN Amended: Links added.
--- NOTE | 2019-12-16 06:30 | NUR ---
Patient in room PCU 3023. I have received report from Laura PENDLETON and had the opportunity to ask questions and assume patient care.
[2019-12-16] MEDS: K and/or MAG REPLACEMENT MC SCH ×2 (08:00→20:00)
[2019-12-16] MEDS: docusate sod 100mg capsule PO SCH ×2 (08:00→19:40)
[2019-12-16] MEDS: risperiDONE 0.5mg tablet PO SCH (08:37)
[2019-12-16] MEDS: furosemide 10 MG/1 ML 10ml inj IV SCH ×2 (08:38→19:36)
[2019-12-16] MEDS: heparin, porcine 5000 units/ml vial SQ SCH ×2 (08:50→19:37)
[2019-12-16] MEDS: insulin Lispro (HumaLOG) vial - multi-dose SQ SCH ×2 (09:01→14:07)
[2019-12-16 10:35] LABS: ABG HCO3 41.1 mmol/L (22.0-26.0); ABG OXYGEN SATURATION 93.2 % (94-97); ABG PCO2 (T) 87.5 mmHg (35.0-48.0); ABG PO2 (T) 74.6 mmHg (75.0-100.0); ALLEN'S TEST POSITIVE; FCOHb 1.7 % (0.0-3.9); FLOW 6 L/min; FMetHb 0.2 % (0.0-1.5); FO2Hb 91.4 % (94-97); TOTAL HEMOGLOBIN 16.1 G/dl (14.0-18.0)
[2019-12-16 11:51] VITALS: BP 133/79
[2019-12-16 16:32] VITALS: BP 108/56
--- NOTE | 2019-12-16 16:53 | NUR ---
I have reviewed and agree with all medications administered and interventions performed by POULTRY HELPER Student Getachew Pearce
[2019-12-16 18:00] VITALS: BP 136/79
--- NOTE | 2019-12-16 18:34 | NUR ---
Problems reprioritized. Patient report given, questions answered & plan of care reviewed with Vic PENDLETON.
[2019-12-16] MEDS: insulin glargine (Lantus) pen - multi-dose SQ SCH (21:43)
[2019-12-16 22:00] VITALS: BP 116/49
[2019-12-17 02:00] VITALS: BP 143/65
--- NOTE | 2019-12-17 04:40 | NUR ---
Student documentation: I have reviewed and agree with all interventions, assessments performed and documented by Ginette Student RN.
--- NOTE | 2019-12-17 04:42 | NUR ---
Student Medication Administration: For all medication-pass time frames, all medications were reviewed, dispensed, administered and documented per hospital policy by Ginette Welch RN under supervision by Vic Russ RN.
[2019-12-17 06:25] LABS: ALANINE AMINOTRANSFERASE 20 U/L (12-78); ALBUMIN 2.6 G/DL (3.4-5.0); ALBUMIN/GLOBULIN RATIO 0.7 (1.1-1.5); ALKALINE PHOSPHATASE 63 IU/L (46-116); ANION GAP -1 (8-16); ASPARTATE AMINO TRANSFERASE 18 U/L (10-37); BILIRUBIN,TOTAL 0.8 MG/DL (0.1-1.0); BLOOD UREA NITROGEN 12 MG/DL (7-18); BUN/CREATININE RATIO 19.4 (5.4-32.0); CALCIUM 8.8 MG/DL (8.5-10.1); CHLORIDE 96 MMOL/L (99-107); CREATININE 0.62 MG/DL (0.60-1.10); GLUCOSE 177 MG/DL (70-104); MAGNESIUM 1.6 MG/DL (1.5-2.4); SODIUM 139 MMOL/L (135-145); TOTAL PROTEIN 6.1 G/DL (6.4-8.2); eGFR > 90 ML/MIN
[2019-12-17 06:38] LABS: TOTAL CARBON DIOXIDE 44.1 MMOL/L (24-32)
[2019-12-17 06:40] VITALS: BP 122/73
[2019-12-17 06:43] LABS: BASOPHILS % (AUTO) 0.3 % (0-1); EOSINOPHILS # (AUTO) 0.1 X10'3 (0-0.9); EOSINOPHILS % (AUTO) 1.8 % (0-6); HEMATOCRIT 45.8 % (42.0-52.0); HEMOGLOBIN 14.7 g/dl (14.0-17.9); LYMPHOCYTES % (AUTO) 12.8 % (21-51); MEAN CORPUSCULAR HEMOGLOBIN 29.3 PG (27.0-31.0); MEAN CORPUSCULAR HGB CONC 32.1 g/dL (33.0-36.5); MEAN CORPUSCULAR VOLUME 91.4 FL (78-98); MEAN PLATELET VOLUME 7.1 FL (7.4-10.4); MONOCYTES # (AUTO) 0.7 X10'3 (0-0.9); MONOCYTES % (AUTO) 9.3 % (2-12); NEUTROPHILS # (AUTO) 5.7 X10'3 (1.8-7.7); NEUTROPHILS % (AUTO) 75.8 % (42-75); PLATELET COUNT 195 X10'3 (140-440); RED BLOOD COUNT 5.01 X10'6 (4.70-6.10); RED CELL DISTRIBUTION WIDTH 14.4 % (11.5-14.5); WHITE BLOOD COUNT 7.5 X10'3 (4.5-11.0)
--- NOTE | 2019-12-17 06:44 | NUR ---
Was told in report that pt. is refusing to wear his bipap. Sure enough, during first rounds, Pt. states, "What?! Where that windy, whooshy thing? Nooooooo." Pt. educated and encouraged to wear his bipap with no success.
--- NOTE | 2019-12-17 06:49 | NUR ---
Paged MD Rousseau to notify of critical value CO2.
--- NOTE | 2019-12-17 07:34 | NUR ---
PAGER ID: [phone] MESSAGE: Sukhwinder Moreno [id number] FYI critical C02 44.1. Better than yesterdays. Pt. refuses to wear BIPAP currently. Su [phone]
[2019-12-17] MEDS: K and/or MAG REPLACEMENT MC SCH ×2 (08:00→20:00)
[2019-12-17] MEDS: furosemide 10 MG/1 ML 10ml inj IV SCH ×2 (09:28→19:32)
[2019-12-17] MEDS: docusate sod 100mg capsule PO SCH ×2 (09:28→19:46)
[2019-12-17] MEDS: risperiDONE 0.5mg tablet PO SCH (09:28)
[2019-12-17] MEDS: heparin, porcine 5000 units/ml vial SQ SCH ×2 (09:29→19:40)
[2019-12-17] MEDS: insulin Lispro (HumaLOG) vial - multi-dose SQ SCH ×3 (09:40→19:17)
[2019-12-17 11:00] VITALS: BP 103/54
[2019-12-17] MEDS: normal saline 1000ml 1,000 ML IV SCH (13:25)
[2019-12-17] MEDS ORDERED: FURO-149 PO (14:27)
[2019-12-17] MEDS ORDERED: DIP0.05CR TOP (14:27)
[2019-12-17] MEDS ORDERED: PRED20TA PO (14:27)
[2019-12-17 15:56] VITALS: BP 142/61
--- NOTE | 2019-12-17 16:05 | NUR ---
PAGER ID: [phone] MESSAGE: BLAIR ON TELE@[phone], [phone] HAS NO O2 TO DC HOME WITH. ALL [facility] TAN[facility]. HE DROPS TO 88% ON R/A WITH MINIMUM ACTIVITY. CANT DC WITH OUT HIS O2.
[2019-12-17] MEDS ORDERED: predniSONE 20 mg tablet PO ONE (16:15)
[2019-12-17 18:00] VITALS: BP 135/74
--- NOTE | 2019-12-17 18:00 | NUR ---
Patient in room PCU 3023. I have received report from Su PENDLETON and had the opportunity to ask questions and assume patient care.
--- NOTE | 2019-12-17 18:53 | NUR ---
Gave report to Wendy PENDLETON.
[2019-12-17] MEDS: insulin glargine (Lantus) pen - multi-dose SQ SCH (21:31)
[2019-12-18 02:00] VITALS: BP 104/44
[2019-12-18 06:00] LABS: BASOPHILS % (AUTO) 0.3 % (0-1); EOSINOPHILS % (AUTO) 0.3 % (0-6); HEMATOCRIT 48.2 % (42.0-52.0); HEMOGLOBIN 15.5 g/dl (14.0-17.9); LYMPHOCYTES # (AUTO) 0.8 X10'3 (1.1-4.8); LYMPHOCYTES % (AUTO) 14.1 % (21-51); MEAN CORPUSCULAR HEMOGLOBIN 28.9 PG (27.0-31.0); MEAN CORPUSCULAR HGB CONC 32.2 g/dL (33.0-36.5); MEAN CORPUSCULAR VOLUME 89.9 FL (78-98); MEAN PLATELET VOLUME 7.2 FL (7.4-10.4); MONOCYTES # (AUTO) 0.4 X10'3 (0-0.9); MONOCYTES % (AUTO) 7.1 % (2-12); NEUTROPHILS # (AUTO) 4.6 X10'3 (1.8-7.7); NEUTROPHILS % (AUTO) 78.2 % (42-75); PLATELET COUNT 184 X10'3 (140-440); RED BLOOD COUNT 5.37 X10'6 (4.70-6.10); RED CELL DISTRIBUTION WIDTH 14.5 % (11.5-14.5); WHITE BLOOD COUNT 5.9 X10'3 (4.5-11.0)
[2019-12-18 06:16] LABS: ALANINE AMINOTRANSFERASE 16 U/L (12-78); ALBUMIN 2.7 G/DL (3.4-5.0); ALBUMIN/GLOBULIN RATIO 0.7 (1.1-1.5); ALKALINE PHOSPHATASE 71 IU/L (46-116); ANION GAP 2 (8-16); ASPARTATE AMINO TRANSFERASE 19 U/L (10-37); BILIRUBIN,TOTAL 0.7 MG/DL (0.1-1.0); BLOOD UREA NITROGEN 12 MG/DL (7-18); BUN/CREATININE RATIO 21.4 (5.4-32.0); CALCIUM 9.1 MG/DL (8.5-10.1); CHLORIDE 99 MMOL/L (99-107); CREATININE 0.56 MG/DL (0.60-1.10); GLUCOSE 210 MG/DL (70-104); MAGNESIUM 1.8 MG/DL (1.5-2.4); POTASSIUM 4.3 MMOL/L (3.5-5.1); SODIUM 140 MMOL/L (135-145); TOTAL CARBON DIOXIDE 39.4 MMOL/L (24-32); TOTAL PROTEIN 6.7 G/DL (6.4-8.2); eGFR > 90 ML/MIN
--- NOTE | 2019-12-18 06:25 | NUR ---
Paged CM regarding yesterday's discharge order. Pt. states he has 4-6 tanks of 02 [facility] but does not know where they are from. He refuses to wear a bipap here but will need one available to him upon discharge.
--- NOTE | 2019-12-18 06:30 | NUR ---
Problems reprioritized. Patient report given, questions answered & plan of care reviewed with Su PENDLETON.
--- NOTE | 2019-12-18 06:30 | NUR ---
PT. REFUSED 0600 VS TO BE TAKEN. WILL EDUCATE AND RE-APPROACH AT A LATER TIME.
[2019-12-18] MEDS: K and/or MAG REPLACEMENT MC SCH (08:00)
[2019-12-18] MEDS ORDERED: predniSONE 20 mg tablet PO SCH (08:00)
[2019-12-18] MEDS: risperiDONE 0.5mg tablet PO SCH (08:00)
[2019-12-18] MEDS: docusate sod 100mg capsule PO SCH (08:22)
[2019-12-18] MEDS: furosemide 10 MG/1 ML 10ml inj IV SCH (08:22)
[2019-12-18] MEDS: heparin, porcine 5000 units/ml vial SQ SCH (08:24)
[2019-12-18] MEDS: insulin Lispro (HumaLOG) vial - multi-dose SQ SCH (08:32)
--- NOTE | 2019-12-18 13:28 | NUR ---
Reviewed discharge paperwork with pt. Pt. was very passive during all education and review. He was encouraged to pay attention and be more active in his healthcare as it is important. 02 tank for transport was delivered by [facility]. reviewed with pt.to follow up with Laura Malone in 1 week and to f/u with his PCP regarding a sleep study for a CPAP. Pt. has stated multiple times that he would not wear it anyway so "it did not matter". Pt. was given in depth education regarding diabetic management... written and verbal. Was talked to about his steroids and how they could elevate his blood glucose levels and that his insulin was important to take. Was not covered for insulin before discharge r/t unable to re-evaluate insulin effects after discharge. Pt. encouraged to check his blood sugar [facility]. Discussed new discharge medications and Lasix dose change. Pt. is aware that his medications have been e-scripted to [facility] pharmacy. A partnership ride was arranged by [facility] and they will take him to [facility] to get medications. He then he has a bus pass provided by so that [facility] can get [facility].
--- NOTE | 2019-12-18 14:00 | NUR ---
IV DC'd , Tele removed and returned.
== END 2019-12-18 13:28 | disposition home or self-care (01) | DRG 140 ==
LOC: ER 11:44 → ED HOLD 15:17 → MED 3N 15:55 → PCU 3S 12-15 20:25
PROVIDERS: ADMIT Internal Medicine; ATTEND Internal Medicine
PROC: 5A09357 Assistance with Respiratory Ventilation, Less than 24 Consecutive Hours, Continuous Positive Airway Pressure (ICD-10-PCS; principal; 2019-12-15)
PROC: 5A09357 Assistance with Respiratory Ventilation, Less than 24 Consecutive Hours, Continuous Positive Airway Pressure (ICD-10-PCS; 2019-12-16)
DX: J43.9 Emphysema, unspecified (principal); J96.22 Acute and chronic respiratory failure with hypercapnia; E11.9 Type 2 diabetes mellitus without complications; F17.210 Nicotine dependence, cigarettes, uncomplicated; G47.33 Obstructive sleep apnea (adult) (pediatric); G89.29 Other chronic pain; I11.0 Hypertensive heart disease with heart failure; I50.9 Heart failure, unspecified; Z59.0 Homelessness; Z66 Do not resuscitate; Z79.4 Long term (current) use of insulin; I95.9 Hypotension, unspecified; L40.9 Psoriasis, unspecified
CPT/HCPCS: 36415; 36600; 71045; 74176; 76937; 80053; 81001; 82803; 82948; 83605; 83735; 83880; 84145; 84484; 85018; 85025; 87040; 87081; 93005; 93306; 93308; 94660; 94760; 96365; 97110; 97116; 97163; 97530; 99285; G0378; J1644; J1815; J1940; J2543; J3370; J7030; J7512

== ENCOUNTER 2020-02-16 04:32 | Inpatient (IN) | payer MEDICAID ==
[~2020-02-16] VITALS: Ht 190.5 cm; Wt 206.4 kg
[~2020-02-16 04:32] MED LIST changes: +DIP0.05CR TOP; -LISI-604 PO; +PRED20TA PO; -RISP3TAB3 PO; +RISP3TAB63 PO
[2020-02-16] MEDS ORDERED: BUDE10.27 PO (05:09)
[2020-02-16] MEDS ORDERED: RISP4TAB73 PO (05:09)
[2020-02-16] MEDS ORDERED: FURO40TA4 PO (05:09)
[2020-02-16 05:16] LABS: BASOPHILS % (AUTO) 0.5 % (0-1); EOSINOPHILS # (AUTO) 0.1 X10'3 (0-0.9); EOSINOPHILS % (AUTO) 1.4 % (0-6); LYMPHOCYTES # (AUTO) 1.2 X10'3 (1.1-4.8); LYMPHOCYTES % (AUTO) 15.9 % (21-51); MEAN CORPUSCULAR HEMOGLOBIN 29.1 PG (27.0-31.0); MEAN PLATELET VOLUME 6.9 FL (7.4-10.4); MONOCYTES # (AUTO) 0.8 X10'3 (0-0.9); MONOCYTES % (AUTO) 10.5 % (2-12); NEUTROPHILS # (AUTO) 5.5 X10'3 (1.8-7.7); NEUTROPHILS % (AUTO) 71.7 % (42-75); PLATELET COUNT 243 X10'3 (140-440); RED BLOOD COUNT 5.49 X10'6 (4.70-6.10); RED CELL DISTRIBUTION WIDTH 15.2 % (11.5-14.5); WHITE BLOOD COUNT 7.6 X10'3 (4.5-11.0)
[2020-02-16 05:30] LABS: ALANINE AMINOTRANSFERASE 29 U/L (12-78); ALBUMIN 2.5 G/DL (3.4-5.0); ALBUMIN/GLOBULIN RATIO 0.7 (1.1-1.5); ALKALINE PHOSPHATASE 81 IU/L (46-116); ANION GAP 0 (8-16); ASPARTATE AMINO TRANSFERASE 26 U/L (10-37); BILIRUBIN,TOTAL 0.6 MG/DL (0.1-1.0); BLOOD UREA NITROGEN 19 MG/DL (7-18); BUN/CREATININE RATIO 24.7 (5.4-32.0); CALCIUM 8.6 MG/DL (8.5-10.1); CHLORIDE 99 MMOL/L (99-107); CREATININE 0.77 MG/DL (0.60-1.10); GLUCOSE 364 MG/DL (70-104); SODIUM 138 MMOL/L (135-145); TOTAL CARBON DIOXIDE 39.1 MMOL/L (24-32); TOTAL PROTEIN 6.3 G/DL (6.4-8.2); eGFR > 90 ML/MIN
[2020-02-16 05:36] LABS: MAGNESIUM 1.6 MG/DL (1.5-2.4)
[2020-02-16 05:42] LABS: POTASSIUM 4.5 MMOL/L (3.5-5.1)
[2020-02-16] MEDS ORDERED: furosemide 10 MG/1 ML 10ml inj IV ONE (05:45)
--- NOTE | 2020-02-16 07:19 | NUR ---
pt ambulated to bathroom using home cane, no assistance needed. pt stated he needed to urinate and refused to use urinal and bed side commode.
[2020-02-16] MEDS ORDERED: potassium Cl 20 mEq SR tablet PO PRN ×2 (07:30)
[2020-02-16] MEDS ORDERED: acetaminophen 325mg tablet PO PRN ×2 (07:30)
[2020-02-16] MEDS ORDERED: potassium Cl 40MEQ/1/2NS 520ml 520 ML IV PRN ×2 (07:30)
[2020-02-16] MEDS ORDERED: ondansetron/PF 4mg/2ml inj IV PRN (07:30)
[2020-02-16] MEDS ORDERED: magnesium 4gm in 100ml NS 100 ML IV PRN (07:30)
[2020-02-16] MEDS ORDERED: magnesium Cl slow-release 64mg tablet PO PRN (07:30)
[2020-02-16] MEDS ORDERED: magnesium 2GM in 50ml NS 50 ML IV PRN (07:30)
[2020-02-16] MEDS ORDERED: glucagon, human recombinant 1mg kit SUBCUT PRN (07:35)
[2020-02-16] MEDS ORDERED: dextrose 50%-water 50ml dispensing syringe IV PRN ×2 (07:35)
[2020-02-16] MEDS ORDERED: dextrose ORAL solution 15 GM/59 ML bottle PO PRN ×2 (07:35)
[2020-02-16] MEDS ORDERED: MESSAGE TO PHARMACY PO ONE (07:35)
[2020-02-16] MEDS: docusate sod 100mg capsule PO SCH ×2 (08:00→19:12)
[2020-02-16] MEDS: heparin, porcine 5000 units/ml vial SQ SCH ×2 (08:00→19:06)
[2020-02-16] MEDS: K and/or MAG REPLACEMENT MC SCH ×2 (08:00→19:43)
[2020-02-16] MEDS: furosemide 10 MG/1 ML 10ml inj IV SCH ×2 (08:00→19:06)
--- NOTE | 2020-02-16 08:39 | NUR ---
pt refused heparin sq and colace, explained risks and benifits and pt still refused.
--- NOTE | 2020-02-16 09:45 | NUR ---
PT REFUSING LAB DRAW UNTIL HE GETS SOMETHING FOR PAIN. PT STATED HE WANTS SOMETHIGN STRONGER THAN TYLENOL. GAVE PT NORCO THEN AGREES TO HAVE LABS DRAWN.
[2020-02-16] MEDS: HYDROcodone/acetaminophen 5mg/325mg tablet PO PRN (09:56)
--- NOTE | 2020-02-16 10:33 | NUR ---
PT AGGITATED WHEN SLEEPING. SPO2 77% READJUSTED PROBE TO GET SPO2 91%. PT STATED HE NEEDS ALL THE ALARMS TO GO OFF. RIPPED OFF HIS O2 AND STATES HE IS DONE WITH THE O2. EDUCATED PT ABOUT IMPROTANCE OF O2. PT STATED HE DOES NOT WANT TO BE INTUBATED IF HE STOPPS BREATHING. PAGE SENT TO DR FITZGERALD, AWAITING CALL BACK.
[2020-02-16 10:44] LABS: HEMOGLOBIN A1C 10.5 % (4.5-6.2)
--- NOTE | 2020-02-16 10:48 | NUR ---
DR FITZGERALD AT BEDSIDE.
--- NOTE | 2020-02-16 11:57 | NUR ---
PT STATED HE WANTS TO BE A DNR. VERIFIED WITH ERIC PENDLETON. PAGE SENT TO DR FITZGERALD TO GET CODE STATUS CHANGED IN COMPUTER. BAND PLACED ON PT.
--- NOTE | 2020-02-16 13:57 | NUR ---
Patient in room ED 4. I have received report from Vamsi PENDLETON and had the opportunity to ask questions and assume patient care.
[2020-02-16 14:30] VITALS: BP 123/77
[2020-02-16 18:00] VITALS: BP 107/67
--- NOTE | 2020-02-16 18:12 | NUR ---
Problems reprioritized. Patient report given, questions answered & plan of care reviewed with Alondra PENDLETON.
[2020-02-16] MEDS: insulin Lispro (HumaLOG) vial - multi-dose SQ SCH ×2 (19:11→21:20)
--- NOTE | 2020-02-16 19:48 | NUR ---
Paged Dr. Rousseau. PAGER ID: [phone] MESSAGE: Pt. JoshSukhwinder brasher 54 M. Dx : CHF exac, Anasarca has hx of obstructive sleep apnea. Do you want to order CPAP @ night for the pt? Thanks! KEERTHI Cantu x [phone]
[2020-02-16] MEDS: insulin glargine (Lantus) pen - multi-dose SQ SCH (21:18)
[2020-02-16 22:00] VITALS: BP 112/67
--- NOTE | 2020-02-17 01:40 | NUR ---
Paged RT to follow up pt's CPAP.
[2020-02-17 02:00] VITALS: BP 132/68
--- NOTE | 2020-02-17 06:21 | NUR ---
Problems reprioritized. Patient report given, questions answered & plan of care reviewed with KEERTHI Pozo.
--- NOTE | 2020-02-17 06:36 | NUR ---
Patient in room PCU 3025. I have received report from ekta haro and had the opportunity to ask questions and assume patient care.
[2020-02-17 06:50] LABS: BASOPHILS % (AUTO) 0.5 % (0-1); EOSINOPHILS # (AUTO) 0.1 X10'3 (0-0.9); EOSINOPHILS % (AUTO) 1.7 % (0-6); HEMATOCRIT 47.7 % (42.0-52.0); HEMOGLOBIN 15.4 g/dl (14.0-17.9); LYMPHOCYTES % (AUTO) 13.2 % (21-51); MEAN CORPUSCULAR HEMOGLOBIN 29.4 PG (27.0-31.0); MEAN CORPUSCULAR HGB CONC 32.4 g/dL (33.0-36.5); MEAN CORPUSCULAR VOLUME 90.9 FL (78-98); MEAN PLATELET VOLUME 6.6 FL (7.4-10.4); MONOCYTES # (AUTO) 0.8 X10'3 (0-0.9); NEUTROPHILS # (AUTO) 5.7 X10'3 (1.8-7.7); NEUTROPHILS % (AUTO) 74.6 % (42-75); PLATELET COUNT 259 X10'3 (140-440); RED BLOOD COUNT 5.25 X10'6 (4.70-6.10); RED CELL DISTRIBUTION WIDTH 15.1 % (11.5-14.5); WHITE BLOOD COUNT 7.7 X10'3 (4.5-11.0)
[2020-02-17 06:58] VITALS: BP 101/62
[2020-02-17 07:36] LABS: ALANINE AMINOTRANSFERASE 31 U/L (12-78); ALBUMIN 2.6 G/DL (3.4-5.0); ALBUMIN/GLOBULIN RATIO 0.7 (1.1-1.5); ALKALINE PHOSPHATASE 80 IU/L (46-116); ANION GAP -2 (8-16); ASPARTATE AMINO TRANSFERASE 20 U/L (10-37); BILIRUBIN,TOTAL 0.6 MG/DL (0.1-1.0); BLOOD UREA NITROGEN 20 MG/DL (7-18); BUN/CREATININE RATIO 27.4 (5.4-32.0); CALCIUM 8.9 MG/DL (8.5-10.1); CHLORIDE 99 MMOL/L (99-107); CHOL/HDL RATIO 3.1 (0.00-4.99); CHOLESTEROL 168 MG/DL (0-200); CREATININE 0.73 MG/DL (0.60-1.10); GLUCOSE 287 MG/DL (70-104); HDL CHOLESTEROL 55 MG/DL (35-60); LDL CHOLESTEROL 91 MG/DL (50-100); MAGNESIUM 1.8 MG/DL (1.5-2.4); POTASSIUM 4.7 MMOL/L (3.5-5.1); SODIUM 138 MMOL/L (135-145); TOTAL PROTEIN 6.4 G/DL (6.4-8.2); TRIGLYCERIDES 123 MG/DL (20-135); eGFR > 90 ML/MIN
--- NOTE | 2020-02-17 07:46 | NUR ---
PAGED DR QUIROZ RE: PAGER ID: [phone] MESSAGE: MARIANO PATRICIA. CRITICAL CO2 41.0. (NO HOSPITALIST LIST YET) [facility] 0582
[2020-02-17] MEDS: docusate sod 100mg capsule PO SCH ×2 (08:00→19:46)
[2020-02-17] MEDS: K and/or MAG REPLACEMENT MC SCH ×2 (08:00→19:46)
[2020-02-17] MEDS: heparin, porcine 5000 units/ml vial SQ SCH ×2 (08:08→19:45)
[2020-02-17] MEDS: furosemide 10 MG/1 ML 10ml inj IV SCH ×2 (08:08→19:46)
[2020-02-17] MEDS: HYDROcodone/acetaminophen 5mg/325mg tablet PO PRN ×2 (08:08→14:27)
--- NOTE | 2020-02-17 08:23 | NUR ---
PAGED LIA RE: PAGER ID: [phone] MESSAGE: MARIANO RODRÍGUEZ. CRITICAL CO2 41. [facility] 1499
[2020-02-17] MEDS: insulin Lispro (HumaLOG) vial - multi-dose SQ SCH ×2 (09:47→13:47)
[2020-02-17 11:00] VITALS: BP 106/68
--- NOTE | 2020-02-17 11:45 | NUR ---
Pt refused to have a BIPAP despite educating the pt about the risks and benefits.
--- NOTE | 2020-02-17 12:21 | NUR ---
PT REFUSING TO WEAR BIPAP/CPAP AT THIS TIME
[2020-02-17 16:13] VITALS: BP 124/54
--- NOTE | 2020-02-17 16:52 | NUR ---
DM education A1c 10.5%, pt resides at [facility], receives medication from hung [facility]. Resting when RD visited, given written DM education handout. Addendum: 02/17/20 at [address] Amended: Links added.
[2020-02-17 18:00] VITALS: BP 120/80
--- NOTE | 2020-02-17 18:21 | NUR ---
Problems reprioritized. Patient report given, questions answered & plan of care reviewed with ALVARO PENDLETON.
[2020-02-17] MEDS: insulin glargine (Lantus) pen - multi-dose SQ SCH (20:49)
[2020-02-17 22:00] VITALS: BP 126/73
[2020-02-18] MEDS: HYDROcodone/acetaminophen 5mg/325mg tablet PO PRN (00:17)
[2020-02-18 02:00] VITALS: BP 116/70
[2020-02-18 06:00] VITALS: BP 129/83
[2020-02-18 06:27] LABS: BASOPHILS % (AUTO) 0.3 % (0-1); EOSINOPHILS # (AUTO) 0.1 X10'3 (0-0.9); EOSINOPHILS % (AUTO) 1.2 % (0-6); HEMATOCRIT 47.7 % (42.0-52.0); HEMOGLOBIN 15.4 g/dl (14.0-17.9); MEAN CORPUSCULAR HEMOGLOBIN 29.2 PG (27.0-31.0); MEAN CORPUSCULAR HGB CONC 32.3 g/dL (33.0-36.5); MEAN CORPUSCULAR VOLUME 90.4 FL (78-98); MEAN PLATELET VOLUME 6.8 FL (7.4-10.4); MONOCYTES # (AUTO) 0.9 X10'3 (0-0.9); NEUTROPHILS # (AUTO) 6.8 X10'3 (1.8-7.7); NEUTROPHILS % (AUTO) 77.5 % (42-75); PLATELET COUNT 243 X10'3 (140-440); RED BLOOD COUNT 5.28 X10'6 (4.70-6.10); RED CELL DISTRIBUTION WIDTH 15.1 % (11.5-14.5); WHITE BLOOD COUNT 8.7 X10'3 (4.5-11.0)
--- NOTE | 2020-02-18 06:30 | NUR ---
Patient in room PCU 3025. I have received report from estrellita dash and had the opportunity to ask questions and assume patient care.
--- NOTE | 2020-02-18 06:30 | NUR ---
Problems reprioritized. Patient report given, questions answered & plan of care reviewed with KEERTHI Hopkins.
[2020-02-18 06:51] LABS: ALANINE AMINOTRANSFERASE 28 U/L (12-78); ALBUMIN 2.7 G/DL (3.4-5.0); ALBUMIN/GLOBULIN RATIO 0.7 (1.1-1.5); ALKALINE PHOSPHATASE 82 IU/L (46-116); ANION GAP -1 (8-16); ASPARTATE AMINO TRANSFERASE 21 U/L (10-37); BILIRUBIN,TOTAL 1.1 MG/DL (0.1-1.0); BLOOD UREA NITROGEN 21 MG/DL (7-18); BUN/CREATININE RATIO 28.8 (5.4-32.0); CALCIUM 8.7 MG/DL (8.5-10.1); CHLORIDE 98 MMOL/L (99-107); CREATININE 0.73 MG/DL (0.60-1.10); GLUCOSE 225 MG/DL (70-104); MAGNESIUM 1.6 MG/DL (1.5-2.4); POTASSIUM 4.5 MMOL/L (3.5-5.1); SODIUM 141 MMOL/L (135-145); TOTAL PROTEIN 6.6 G/DL (6.4-8.2); eGFR > 90 ML/MIN
[2020-02-18 06:52] LABS: TOTAL CARBON DIOXIDE 43.6 MMOL/L (24-32)
[2020-02-18] MEDS: furosemide 10 MG/1 ML 10ml inj IV SCH (08:25)
[2020-02-18] MEDS: heparin, porcine 5000 units/ml vial SQ SCH (08:26)
[2020-02-18] MEDS: docusate sod 100mg capsule PO SCH ×2 (08:26→20:00)
[2020-02-18] MEDS: K and/or MAG REPLACEMENT MC SCH ×2 (08:36→19:42)
[2020-02-18] MEDS: insulin Lispro (HumaLOG) vial - multi-dose SQ SCH ×2 (09:11→14:12)
[2020-02-18 11:00] VITALS: BP 110/75
[2020-02-18 18:00] VITALS: BP 98/63
--- NOTE | 2020-02-18 18:00 | NUR ---
Patient in room PCU 3025. I have received report from DUKE PENDLETON and had the opportunity to ask questions and assume patient care.
--- NOTE | 2020-02-18 18:23 | NUR ---
Problems reprioritized. Patient report given, questions answered & plan of care reviewed with KEERTHI Myrick.
[2020-02-18] MEDS: morphine 2 MG/ML inj. syringe IV PRN (19:54)
[2020-02-18] MEDS ORDERED: furosemide 40mg/4ml inj IV SCH (20:00)
[2020-02-18] MEDS: metoprolol tartrate 12.5mg (1/2 tablet) PO SCH (20:04)
[2020-02-18] MEDS: apixaban 5mg tablet PO SCH (20:05)
[2020-02-18 22:00] VITALS: BP 94/50
[2020-02-18] MEDS: insulin glargine (Lantus) pen - multi-dose SQ SCH (22:13)
[2020-02-18] MEDS: risperiDONE 2mg tablet PO SCH (22:20)
--- NOTE | 2020-02-18 22:21 | NUR ---
PATIENT REFUSED TO TAKE SCHEDULED DOSE OF RIPERDAL 4MG.ONLY TOOK 2MG
[2020-02-19] MEDS: HYDROcodone/acetaminophen 5mg/325mg tablet PO PRN ×3 (01:00→21:04)
[2020-02-19 02:00] VITALS: BP 115/71
--- NOTE | 2020-02-19 06:28 | NUR ---
Problems reprioritized. Patient report given, questions answered & plan of care reviewed with SALINAS PENDLETON.
--- NOTE | 2020-02-19 07:09 | NUR ---
This patient is extremely rude!!! Using VERY offensive, VULGAR language!! Cunt is NOT an acceptable word when speaking of the aid!
[2020-02-19 07:52] LABS: BASOPHILS % (AUTO) 0.6 % (0-1); EOSINOPHILS # (AUTO) 0.1 X10'3 (0-0.9); EOSINOPHILS % (AUTO) 1.7 % (0-6); HEMATOCRIT 46.6 % (42.0-52.0); HEMOGLOBIN 14.9 g/dl (14.0-17.9); LYMPHOCYTES # (AUTO) 1.3 X10'3 (1.1-4.8); LYMPHOCYTES % (AUTO) 19.7 % (21-51); MEAN CORPUSCULAR HEMOGLOBIN 28.4 PG (27.0-31.0); MEAN CORPUSCULAR HGB CONC 31.9 g/dL (33.0-36.5); MONOCYTES # (AUTO) 0.8 X10'3 (0-0.9); MONOCYTES % (AUTO) 12.6 % (2-12); NEUTROPHILS # (AUTO) 4.3 X10'3 (1.8-7.7); NEUTROPHILS % (AUTO) 65.4 % (42-75); PLATELET COUNT 230 X10'3 (140-440); RED BLOOD COUNT 5.23 X10'6 (4.70-6.10); RED CELL DISTRIBUTION WIDTH 15.1 % (11.5-14.5); WHITE BLOOD COUNT 6.6 X10'3 (4.5-11.0)
[2020-02-19] MEDS: docusate sod 100mg capsule PO SCH ×2 (08:00→21:04)
[2020-02-19] MEDS: lisinopril 5mg tablet PO SCH (08:00)
[2020-02-19] MEDS: metoprolol tartrate 12.5mg (1/2 tablet) PO SCH (08:00)
[2020-02-19] MEDS: K and/or MAG REPLACEMENT MC SCH ×2 (08:00→20:00)
[2020-02-19] MEDS: insulin Lispro (HumaLOG) vial - multi-dose SQ SCH ×2 (08:11→20:47)
[2020-02-19 08:17] LABS: ALANINE AMINOTRANSFERASE 24 U/L (12-78); ALBUMIN 2.4 G/DL (3.4-5.0); ALBUMIN/GLOBULIN RATIO 0.6 (1.1-1.5); ALKALINE PHOSPHATASE 73 IU/L (46-116); ANION GAP 2 (8-16); ASPARTATE AMINO TRANSFERASE 20 U/L (10-37); BLOOD UREA NITROGEN 24 MG/DL (7-18); BUN/CREATININE RATIO 37.5 (5.4-32.0); CALCIUM 8.5 MG/DL (8.5-10.1); CHLORIDE 97 MMOL/L (99-107); CREATININE 0.64 MG/DL (0.60-1.10); GLUCOSE 181 MG/DL (70-104); MAGNESIUM 1.7 MG/DL (1.5-2.4); SODIUM 140 MMOL/L (135-145); TOTAL PROTEIN 6.2 G/DL (6.4-8.2); eGFR > 90 ML/MIN
[2020-02-19] MEDS: apixaban 5mg tablet PO SCH ×2 (08:18→21:04)
[2020-02-19 08:19] LABS: TOTAL CARBON DIOXIDE 40.7 MMOL/L (24-32)
[2020-02-19 08:21] VITALS: BP 90/69
[2020-02-19] MEDS: furosemide 40mg/4ml inj IV SCH ×3 (08:35→23:40)
--- NOTE | 2020-02-19 10:30 | NUR ---
Report to Olegario PENDLETON, transfer of care to facilitate dobutamine drip as ordered.
[2020-02-19 11:00] VITALS: BP 102/52
[2020-02-19] MEDS: DOBUTamine-DoBUTrex 500mg/D5W 250 ML IV SCH ×3 (13:07→23:32)
[2020-02-19 18:00] VITALS: BP 126/94
--- NOTE | 2020-02-19 18:42 | NUR ---
Problems reprioritized. Patient report given, questions answered & plan of care reviewed with Sylvia PENDLETON.
[2020-02-19] MEDS: insulin glargine (Lantus) pen - multi-dose SQ SCH (20:51)
[2020-02-19] MEDS: risperiDONE 2mg tablet PO SCH (21:04)
[2020-02-19] MEDS: temazepam 15mg capsule PO PRN (21:04)
[2020-02-19 22:00] VITALS: BP 147/50
[2020-02-20] VITALS (9 sets, daily range): BP systolic 106–133; BP diastolic 55–83
[2020-02-20] MEDS: temazepam 15mg capsule PO PRN (00:46)
[2020-02-20] MEDS: morphine 2 MG/ML inj. syringe IV PRN (00:47)
--- NOTE | 2020-02-20 06:30 | NUR ---
PT HAD A DRY PATCH TO THE RIGHT ELBOW. WHILE CLIMBING IN THE BED THE PT KNOCKED THE PATCH OFF AND CAUSED IT TO BLEED.
--- NOTE | 2020-02-20 06:31 | NUR ---
PT HALLUCINATED OVER THE NI Addendum: 02/20/20 at 0633 by Eugene Patterson RN PT HALLUCINATED OVER THE NIGHT STATED THAT HE THOUGHT HE WAS RUNNING DOWN THE HALLWAY. PT STATED THAT HE DOESN'T KNOW WHAT HE WANTS TO DO FAR HIS LIFE IS CONCERNED. PT SEEMS CONFUSED AND STILL RESPONDING TO INTERNAL STIMULI.
[2020-02-20 06:46] LABS: BASOPHILS % (AUTO) 0.4 % (0-1); EOSINOPHILS # (AUTO) 0.1 X10'3 (0-0.9); EOSINOPHILS % (AUTO) 1.8 % (0-6); HEMATOCRIT 46.5 % (42.0-52.0); HEMOGLOBIN 14.8 g/dl (14.0-17.9); LYMPHOCYTES # (AUTO) 1.1 X10'3 (1.1-4.8); MEAN CORPUSCULAR HEMOGLOBIN 28.8 PG (27.0-31.0); MEAN CORPUSCULAR HGB CONC 31.9 g/dL (33.0-36.5); MEAN CORPUSCULAR VOLUME 90.4 FL (78-98); MEAN PLATELET VOLUME 6.9 FL (7.4-10.4); MONOCYTES % (AUTO) 15.5 % (2-12); NEUTROPHILS # (AUTO) 4.2 X10'3 (1.8-7.7); NEUTROPHILS % (AUTO) 65.3 % (42-75); PLATELET COUNT 225 X10'3 (140-440); RED BLOOD COUNT 5.14 X10'6 (4.70-6.10); WHITE BLOOD COUNT 6.4 X10'3 (4.5-11.0)
[2020-02-20 07:02] LABS: ALANINE AMINOTRANSFERASE 23 U/L (12-78); ALBUMIN 2.5 G/DL (3.4-5.0); ALBUMIN/GLOBULIN RATIO 0.6 (1.1-1.5); ALKALINE PHOSPHATASE 73 IU/L (46-116); ANION GAP 0 (8-16); ASPARTATE AMINO TRANSFERASE 23 U/L (10-37); BILIRUBIN,TOTAL 0.9 MG/DL (0.1-1.0); BLOOD UREA NITROGEN 19 MG/DL (7-18); BUN/CREATININE RATIO 30.2 (5.4-32.0); CALCIUM 8.8 MG/DL (8.5-10.1); CHLORIDE 99 MMOL/L (99-107); CREATININE 0.63 MG/DL (0.60-1.10); GLUCOSE 173 MG/DL (70-104); MAGNESIUM 1.8 MG/DL (1.5-2.4); POTASSIUM 3.7 MMOL/L (3.5-5.1); SODIUM 140 MMOL/L (135-145); TOTAL PROTEIN 6.4 G/DL (6.4-8.2); eGFR > 90 ML/MIN
[2020-02-20 07:10] LABS: TOTAL CARBON DIOXIDE 41.4 MMOL/L (24-32)
[2020-02-20] MEDS: DOBUTamine-DoBUTrex 500mg/D5W 250 ML IV SCH ×3 (07:24→18:21)
[2020-02-20 07:28] LABS: PLATELET ESTIMATE NORMAL; TOTAL CELLS COUNTED 100
[2020-02-20] MEDS: docusate sod 100mg capsule PO SCH ×2 (08:00→19:11)
[2020-02-20] MEDS: K and/or MAG REPLACEMENT MC SCH ×2 (08:00→20:00)
[2020-02-20] MEDS: lisinopril 5mg tablet PO SCH (09:18)
[2020-02-20] MEDS: apixaban 5mg tablet PO SCH ×2 (09:19→19:11)
[2020-02-20] MEDS: furosemide 40mg/4ml inj IV SCH ×2 (09:19→16:54)
[2020-02-20] MEDS: insulin Lispro (HumaLOG) vial - multi-dose SQ SCH ×3 (09:29→19:16)
--- NOTE | 2020-02-20 14:30 | NUR ---
Sling made for patient using interdry cloth around waist and sling to elevated severely edematous testicles. Pt stated the sling helped with the pain of movement
[2020-02-20] MEDS: HYDROcodone/acetaminophen 5mg/325mg tablet PO PRN (19:19)
[2020-02-20] MEDS: LIDOcaine 2% 10ml TOPICAL JELLY (Urojet) TP ONE ×2 (20:45→22:27)
[2020-02-20] MEDS: insulin glargine (Lantus) pen - multi-dose SQ SCH (21:00)
--- NOTE | 2020-02-20 22:00 | NUR ---
Educated patient on need for bipap. Patient was agreeable to use bipap at night. However, patient did not tolerate placement and refused to wear bipap
[2020-02-20] MEDS: risperiDONE 2mg tablet PO SCH (22:26)
[2020-02-21] VITALS (13 sets, daily range): BP systolic 104–127; BP diastolic 42–83
--- NOTE | 2020-02-21 | NUR ---
patient refused salamanca placement and mindnight dose of lasix Dr aware no new orders
[2020-02-21] MEDS: DOBUTamine-DoBUTrex 500mg/D5W 250 ML IV SCH ×3 (01:58→19:38)
--- NOTE | 2020-02-21 04:54 | NUR ---
Dr notified in regards to patient's elvated heart rate. Awating responds
[2020-02-21 06:25] LABS: BASOPHILS % (AUTO) 0.6 % (0-1); EOSINOPHILS # (AUTO) 0.1 X10'3 (0-0.9); EOSINOPHILS % (AUTO) 1.9 % (0-6); HEMATOCRIT 45.1 % (42.0-52.0); HEMOGLOBIN 14.5 g/dl (14.0-17.9); LYMPHOCYTES % (AUTO) 15.1 % (21-51); MEAN CORPUSCULAR HEMOGLOBIN 29.3 PG (27.0-31.0); MEAN CORPUSCULAR HGB CONC 32.2 g/dL (33.0-36.5); MEAN CORPUSCULAR VOLUME 90.7 FL (78-98); MEAN PLATELET VOLUME 6.9 FL (7.4-10.4); MONOCYTES # (AUTO) 0.8 X10'3 (0-0.9); MONOCYTES % (AUTO) 12.6 % (2-12); NEUTROPHILS # (AUTO) 4.7 X10'3 (1.8-7.7); NEUTROPHILS % (AUTO) 69.8 % (42-75); PLATELET COUNT 225 X10'3 (140-440); RED BLOOD COUNT 4.97 X10'6 (4.70-6.10); RED CELL DISTRIBUTION WIDTH 14.9 % (11.5-14.5); WHITE BLOOD COUNT 6.7 X10'3 (4.5-11.0)
--- NOTE | 2020-02-21 06:30 | NUR ---
Patient in room PCU 3025. I have received report from Destini PENDLETON and had the opportunity to ask questions and assume patient care.
[2020-02-21 06:55] LABS: ALANINE AMINOTRANSFERASE 19 U/L (12-78); ALBUMIN 2.4 G/DL (3.4-5.0); ALBUMIN/GLOBULIN RATIO 0.6 (1.1-1.5); ALKALINE PHOSPHATASE 71 IU/L (46-116); ANION GAP 0 (8-16); ASPARTATE AMINO TRANSFERASE 20 U/L (10-37); BLOOD UREA NITROGEN 16 MG/DL (7-18); BUN/CREATININE RATIO 26.2 (5.4-32.0); CALCIUM 9.1 MG/DL (8.5-10.1); CHLORIDE 98 MMOL/L (99-107); CREATININE 0.61 MG/DL (0.60-1.10); GLUCOSE 165 MG/DL (70-104); MAGNESIUM 1.8 MG/DL (1.5-2.4); POTASSIUM 3.8 MMOL/L (3.5-5.1); SODIUM 140 MMOL/L (135-145); TOTAL PROTEIN 6.2 G/DL (6.4-8.2); eGFR > 90 ML/MIN
[2020-02-21 06:58] LABS: TOTAL CARBON DIOXIDE 42.2 MMOL/L (24-32)
[2020-02-21] MEDS: docusate sod 100mg capsule PO SCH ×2 (08:00→20:23)
[2020-02-21] MEDS: K and/or MAG REPLACEMENT MC SCH ×2 (08:00→20:00)
[2020-02-21] MEDS: apixaban 5mg tablet PO SCH ×2 (08:43→20:24)
[2020-02-21] MEDS: lisinopril 5mg tablet PO SCH (08:44)
[2020-02-21] MEDS: furosemide 40mg/4ml inj IV SCH ×3 (08:44→15:36)
[2020-02-21] MEDS: insulin Lispro (HumaLOG) vial - multi-dose SQ SCH ×3 (08:50→18:43)
--- NOTE | 2020-02-21 10:00 | NUR ---
16 Fr. salamanca cath placed in Pt. Pt tolerated well. 100ml of yellow clear urine out with initial placement.
[2020-02-21] MEDS: diltiazem 30mg tablet PO SCH ×3 (11:35→20:24)
[2020-02-21] MEDS: HYDROcodone/acetaminophen 5mg/325mg tablet PO PRN ×2 (16:15→22:18)
--- NOTE | 2020-02-21 18:20 | NUR ---
Problems reprioritized. Patient report given, questions answered & plan of care reviewed with Jazmin PENDLETON.
[2020-02-21] MEDS: risperiDONE 2mg tablet PO SCH (20:24)
[2020-02-21] MEDS: insulin glargine (Lantus) pen - multi-dose SQ SCH (21:00)
[2020-02-22] VITALS (9 sets, daily range): BP systolic 94–122; BP diastolic 39–75
[2020-02-22] MEDS: furosemide 40mg/4ml inj IV SCH ×3 (00:48→16:16)
[2020-02-22] MEDS: DOBUTamine-DoBUTrex 500mg/D5W 250 ML IV SCH ×3 (00:48→16:59)
[2020-02-22] MEDS: diltiazem 30mg tablet PO SCH ×4 (01:52→19:47)
--- NOTE | 2020-02-22 06:58 | NUR ---
Patient in room PCU 3025. I have received report from Jazmin PENDLETON and had the opportunity to ask questions and assume patient care.
[2020-02-22] MEDS: K and/or MAG REPLACEMENT MC SCH ×2 (08:00→20:00)
[2020-02-22] MEDS: apixaban 5mg tablet PO SCH ×2 (08:25→19:48)
[2020-02-22] MEDS: docusate sod 100mg capsule PO SCH ×2 (08:25→19:48)
[2020-02-22] MEDS: HYDROcodone/acetaminophen 5mg/325mg tablet PO PRN (08:36)
[2020-02-22] MEDS: insulin Lispro (HumaLOG) vial - multi-dose SQ SCH ×3 (08:45→19:45)
--- NOTE | 2020-02-22 18:25 | NUR ---
Patient in room PCU 3025. I have received report from KEERTHI Lafleur and had the opportunity to ask questions and assume patient care.
[2020-02-22] MEDS: insulin glargine (Lantus) pen - multi-dose SQ SCH (21:00)
[2020-02-22] MEDS: risperiDONE 2mg tablet PO SCH (21:46)
[2020-02-22] MEDS: morphine 2 MG/ML inj. syringe IV PRN (21:47)
[2020-02-23] VITALS: BP 99/54
[2020-02-23] MEDS: furosemide 40mg/4ml inj IV SCH ×3 (00:05→16:41)
[2020-02-23] MEDS: diltiazem 30mg tablet PO SCH ×3 (01:43→14:00)
[2020-02-23] MEDS: DOBUTamine-DoBUTrex 500mg/D5W 250 ML IV SCH ×3 (01:43→17:11)
[2020-02-23 02:00] VITALS: BP 97/42
[2020-02-23 04:00] VITALS: BP 96/53
--- NOTE | 2020-02-23 04:55 | NUR ---
paged hospitalist regarding Dobut gtt PAGER ID: [phone] MESSAGE: [phone] Sukhwinder Moreno pt on Dobut gtt @5mcg, consecutive SBP were 94, 98, 97. Would you like me to titrate? Salud RN #[id number]
--- NOTE | 2020-02-23 06:16 | NUR ---
Patient in room PCU 3025. I have received report from marjan PENDLETON and had the opportunity to ask questions and assume patient care.
--- NOTE | 2020-02-23 06:37 | NUR ---
Problems reprioritized. Patient report given, questions answered & plan of care reviewed with KEERTHI Burnett.
[2020-02-23] MEDS: K and/or MAG REPLACEMENT MC SCH ×3 (08:00→19:12)
[2020-02-23] MEDS: HYDROcodone/acetaminophen 5mg/325mg tablet PO PRN (08:21)
[2020-02-23] MEDS: apixaban 5mg tablet PO SCH (08:21)
[2020-02-23] MEDS: docusate sod 100mg capsule PO SCH (08:21)
[2020-02-23] MEDS: insulin Lispro (HumaLOG) vial - multi-dose SQ SCH ×2 (08:29→14:40)
[2020-02-23 11:00] VITALS: BP 109/63
[2020-02-23] MEDS ORDERED: digoxin 250mcg (0.25mg) tablet PO SCH (11:33)
[2020-02-23 15:00] VITALS: BP 103/58
--- NOTE | 2020-02-23 16:52 | NUR ---
report given to manuel to [facility]. answered all questions. patient stablee at this time. pt nies any acute distress. pt vs wnl. pt able to move well. pt oing with dart nurse. pt drip within limits. pt refused to apply continous blood pressure cuff. states he does nt like to have it in place. explain the importance of having it still states he does not want it. pt given lasix for swelling. bp stable.
[2020-02-23 20:00] VITALS: BP 122/77
--- NOTE | 2020-02-23 20:38 | NUR ---
Patient discharged at 2004 with AMS to [facility]. Pt stable in no acute distress. Vitals 98.0, 17, 122/77, 95, 96% 3L NC. Left IV D/C prior to pt leaving and Dobutamine running in Right Arm. All Documents provided to EMT.
[2020-02-24] MEDS ORDERED: digoxin 250mcg (0.25mg) tablet PO SCH (08:00)
== END 2020-02-23 19:50 | DRG 194 ==
LOC: ER 04:33 → ED HOLD 07:29 → PCU 3S 14:01
PROVIDERS: ADMIT Internal Medicine; ATTEND Internal Medicine
DX: I11.0 Hypertensive heart disease with heart failure (principal); E11.65 Type 2 diabetes mellitus with hyperglycemia; E66.01 Morbid (severe) obesity due to excess calories; G47.33 Obstructive sleep apnea (adult) (pediatric); G89.4 Chronic pain syndrome; I27.29 Other secondary pulmonary hypertension; I27.81 Cor pulmonale (chronic); I42.0 Dilated cardiomyopathy; Z20.822 Contact with and (suspected) exposure to COVID-19; I48.0 Paroxysmal atrial fibrillation; I50.30 Unspecified diastolic (congestive) heart failure; I50.82 Biventricular heart failure; J43.9 Emphysema, unspecified; Z66 Do not resuscitate; F15.90 Other stimulant use, unspecified, uncomplicated; N50.89 Other specified disorders of the male genital organs; Z59.0 Homelessness; Z79.01 Long term (current) use of anticoagulants; Z79.899 Other long term (current) drug therapy; Z87.891 Personal history of nicotine dependence; Z68.43 Body mass index [BMI] 50.0-59.9, adult
CPT/HCPCS: 36415; 71045; 76937; 80053; 80061; 82948; 83036; 83735; 83880; 84484; 85007; 85025; 85610; 87081; 87635; 93005; 93308; 94660; 94760; 96374; 97161; 97530; 99285; G0378; J1250; J1644; J1815; J1940; J2270

== ENCOUNTER 2020-07-15 11:17 | Inpatient (IN) | payer MEDICAID ==
[~2020-07-15] VITALS: Ht 188 cm; Wt 172.6 kg
[~2020-07-15 11:17] MED LIST changes: -ALBU18HF2 IH; +BUDE10.27 PO; -DIP0.05CR TOP; +FURO40TA4 PO; -PRED20TA PO; -RISP3TAB63 PO; +RISP4TAB73 PO
[2020-07-15] MEDS ORDERED: normal saline 1000ML IV soln IVB ONE ×2 (12:00→12:40)
[2020-07-15 12:34] LABS: BASOPHILS % (AUTO) 0.4 % (0-1); EOSINOPHILS # (AUTO) 0.2 X10'3 (0-0.9); EOSINOPHILS % (AUTO) 2.7 % (0-6); HEMATOCRIT 44.7 % (42.0-52.0); HEMOGLOBIN 14.6 g/dl (14.0-17.9); LYMPHOCYTES # (AUTO) 0.9 X10'3 (1.1-4.8); LYMPHOCYTES % (AUTO) 14.7 % (21-51); MEAN CORPUSCULAR HGB CONC 32.6 g/dL (33.0-36.5); MEAN PLATELET VOLUME 7.2 FL (7.4-10.4); MONOCYTES # (AUTO) 0.6 X10'3 (0-0.9); MONOCYTES % (AUTO) 9.4 % (2-12); NEUTROPHILS # (AUTO) 4.6 X10'3 (1.8-7.7); NEUTROPHILS % (AUTO) 72.8 % (42-75); PLATELET COUNT 222 X10'3 (140-440); RED BLOOD COUNT 5.03 X10'6 (4.70-6.10); RED CELL DISTRIBUTION WIDTH 14.2 % (11.5-14.5); WHITE BLOOD COUNT 6.3 X10'3 (4.5-11.0)
[2020-07-15] MEDS ORDERED: ipratropium/albuterol 3ml nebule NEB ONE (12:40)
[2020-07-15] MEDS ORDERED: CefTRIAXone 2gm/D5W 50ml BAG 50 ML IV ONE (12:40)
[2020-07-15 12:44] LABS: ALANINE AMINOTRANSFERASE 23 U/L (12-78); ALBUMIN 2.9 G/DL (3.4-5.0); ALBUMIN/GLOBULIN RATIO 0.7 (1.1-1.5); ALKALINE PHOSPHATASE 95 IU/L (46-116); ANION GAP 5 (8-16); ASPARTATE AMINO TRANSFERASE 13 U/L (10-37); BILIRUBIN,TOTAL 0.2 MG/DL (0.1-1.0); BLOOD UREA NITROGEN 15 MG/DL (7-18); BUN/CREATININE RATIO 21.7 (5.4-32.0); CALCIUM 8.7 MG/DL (8.5-10.1); CHLORIDE 100 MMOL/L (99-107); CREATININE 0.69 MG/DL (0.60-1.10); ETHANOL < 0.010 GM/DL (0.0-0.010); GLUCOSE 428 MG/DL (70-104); POTASSIUM 4.3 MMOL/L (3.5-5.1); SODIUM 137 MMOL/L (135-145); TOTAL CARBON DIOXIDE 32.3 MMOL/L (24-32); TOTAL PROTEIN 6.8 G/DL (6.4-8.2); eGFR > 90 ML/MIN
[2020-07-15 13:17] LABS: ABG BASE EXCESS -0.4 mmol/L (-2.0-2.0); ABG HCO3 28.1 mmol/L (22.0-26.0); ABG OXYGEN SATURATION 96.5 % (94-97); ABG PCO2 (T) 63.2 mmHg (35.0-48.0); ABG PO2 (T) 96.2 mmHg (75.0-100.0); ALLEN'S TEST POSITIVE; FCOHb 1.1 % (0.0-3.9); FLOW 4 L/min; FMetHb 0.1 % (0.0-1.5); FO2Hb 95.3 % (94-97); TOTAL HEMOGLOBIN 14.7 G/dl (14.0-18.0)
[2020-07-15] MEDS ORDERED: HYDROcodone/acetaminophen 5mg/325mg tablet PO PRN (13:25)
[2020-07-15] MEDS ORDERED: ipratropium/albuterol 3ml nebule NEB PRN (13:25)
[2020-07-15] MEDS ORDERED: potassium Cl 20 mEq SR tablet PO PRN ×2 (13:25)
[2020-07-15] MEDS ORDERED: enoxaparin 40mg/0.4ml syringe SUBCUT SCH (13:25)
[2020-07-15] MEDS ORDERED: ondansetron/PF 4mg/2ml inj IV PRN (13:25)
[2020-07-15] MEDS ORDERED: mag hydrox/Alum hydrox/simeth 30ml oral suspension PO PRN (13:25)
[2020-07-15] MEDS ORDERED: magnesium Cl slow-release 64mg tablet PO PRN (13:25)
[2020-07-15] MEDS ORDERED: acetaminophen 325mg tablet PO PRN ×2 (13:25)
[2020-07-15] MEDS ORDERED: furosemide 10 MG/1 ML 10ml inj IV SCH (13:25)
[2020-07-15] MEDS ORDERED: magnesium 2GM in 50ml NS 50 ML IV PRN (13:25)
[2020-07-15] MEDS ORDERED: magnesium 4gm in 100ml NS 100 ML IV PRN (13:25)
[2020-07-15] MEDS ORDERED: magnesium hydroxide 30ml (MOM) UD suspension PO PRN (13:25)
[2020-07-15] MEDS ORDERED: potassium Cl 40MEQ/1/2NS 520ml 520 ML IV PRN ×2 (13:25)
[2020-07-15] MEDS ORDERED: methylPREDNISolone sod succ 125mg/2ml vial IV ONE (13:30)
[2020-07-15] MEDS ORDERED: furosemide 40mg/4ml inj IV SCH (13:34)
[2020-07-15] MEDS ORDERED: dextrose 50%-water 50ml dispensing syringe IV PRN ×2 (13:35)
[2020-07-15] MEDS ORDERED: MESSAGE TO PHARMACY PO ONE (13:35)
[2020-07-15] MEDS ORDERED: dextrose ORAL solution 15 GM/59 ML bottle PO PRN ×2 (13:35)
[2020-07-15] MEDS ORDERED: glucagon, human recombinant 1mg kit SUBCUT PRN (13:35)
[2020-07-15] MEDS ORDERED: iohexol 300mg/ml 100ml inj. ONE (13:54)
[2020-07-15] MEDS ORDERED: MESSAGE TO NURSING PO SCH (14:00)
[2020-07-15] MEDS: methylPREDNISolone sod succ 125mg/2ml vial IV SCH ×2 (14:00→19:23)
[2020-07-15 14:06] LABS: CLARITY,URINE CLEAR (Clear); COLOR,URINE YELLOW (Yellow); GLUCOSE, URINE >=1000 mg/dl (Neg); KETONES,URINE NEGATIVE (Neg); LEUKOCYTE ESTERASE ,URINE NEGATIVE (Neg); NITRITES, URINE NEGATIVE (Neg); OCCULT BLOOD,URINE NEGATIVE (Neg); PH,URINE 5.5 (4.8-8.0); PROTEIN,URINE NEGATIVE (Neg); UROBILINOGEN,URINE 0.2 E.U/dL (0.2-1.0)
[2020-07-15 14:08] LABS: UA COLLECTION TYPE VOIDED
[2020-07-15] MEDS: furosemide 40mg/4ml inj IV SCH ×2 (14:11→19:23)
[2020-07-15 14:19] LABS: URINE AMPHETAMINE SCREEN NEGATIVE (Neg); URINE BARBITUATE SCREEN NEGATIVE (Neg); URINE BENZODIAZEPINES SCREEN NEGATIVE (Neg); URINE CANNABINOID SCREEN POSITIVE (Neg); URINE COCAINE SCREEN NEGATIVE (Neg); URINE METHADONE SCREEN NEGATIVE (Neg); URINE OPIATE SCREEN NEGATIVE (Neg); URINE PHENCYCLIDINE SCREEN NEGATIVE (Neg)
[2020-07-15 14:24] LABS: BACTERIA,URINE FEW /HPF (Neg); RBC,URINE 0-2 /HPF (0-2); SQUAMOUS EPITHELIAL CELL,UR FEW /LPF (FEW); WBC,URINE 0-4 /HPF (0-4)
[2020-07-15] MEDS ORDERED: methylPREDNISolone sod succ 125mg/2ml vial IV SCH (16:00)
--- NOTE | 2020-07-15 17:10 | NUR ---
Patient in room ED 3. I have received report from Kymberly RN and had the opportunity to ask questions and assume patient care.
[2020-07-15 17:24] VITALS: BP 153/94
--- NOTE | 2020-07-15 17:56 | NUR ---
Patient oriented to room. Call light within reach. Will continue to monitor. Vital signs documented in vitals intervention.
--- NOTE | 2020-07-15 18:30 | NUR ---
Patient in room PCU 3025. I have received report from Oksana PENDLETON and had the opportunity to ask questions and assume patient care.
--- NOTE | 2020-07-15 18:30 | NUR ---
Patient in room PCU 3025. I have received report from Oksana PENDLETON and had the opportunity to ask questions and assume patient care.
--- NOTE | 2020-07-15 18:31 | NUR ---
Problems reprioritized. Patient report given, questions answered & plan of care reviewed with Bertha PENDLETON. Patient stable at transfer of care.
[2020-07-15] MEDS: insulin Lispro (HumaLOG) vial - multi-dose SQ SCH ×2 (19:15→21:21)
[2020-07-15] MEDS: metoprolol tartrate 25mg tablet PO SCH (19:22)
[2020-07-15] MEDS: K and/or MAG REPLACEMENT MC SCH (19:23)
[2020-07-15] MEDS: apixaban 5mg tablet PO SCH (19:23)
[2020-07-15] MEDS ORDERED: insulin glargine (Lantus) pen - multi-dose SQ SCH (21:00)
--- NOTE | 2020-07-15 21:15 | NUR ---
orthostatic vitals not done. patient refused
[2020-07-15 22:00] VITALS: BP 125/77
[2020-07-16] MEDS: methylPREDNISolone sod succ 125mg/2ml vial IV SCH ×2 (01:14→07:52)
[2020-07-16 01:46] LABS: ALANINE AMINOTRANSFERASE 27 U/L (12-78); ALBUMIN/GLOBULIN RATIO 0.7 (1.1-1.5); ALKALINE PHOSPHATASE 99 IU/L (46-116); ANION GAP 3 (8-16); ASPARTATE AMINO TRANSFERASE 15 U/L (10-37); BILIRUBIN,TOTAL 0.2 MG/DL (0.1-1.0); BLOOD UREA NITROGEN 18 MG/DL (7-18); BUN/CREATININE RATIO 23.4 (5.4-32.0); CALCIUM 9.1 MG/DL (8.5-10.1); CHLORIDE 99 MMOL/L (99-107); CREATININE 0.77 MG/DL (0.60-1.10); GLUCOSE 353 MG/DL (70-104); POTASSIUM 4.5 MMOL/L (3.5-5.1); SODIUM 138 MMOL/L (135-145); TOTAL CARBON DIOXIDE 36.1 MMOL/L (24-32); TOTAL PROTEIN 7.6 G/DL (6.4-8.2); eGFR > 90 ML/MIN
[2020-07-16 01:54] LABS: CHOL/HDL RATIO 2.6 (0.00-4.99); CHOLESTEROL 212 MG/DL (0-200); HDL CHOLESTEROL 83 MG/DL (35-60); LDL CHOLESTEROL 105 MG/DL (50-100); MAGNESIUM 1.8 MG/DL (1.5-2.4); TRIGLYCERIDES 59 MG/DL (20-135)
[2020-07-16 01:58] VITALS: BP 138/76
[2020-07-16 06:00] VITALS: BP 131/81
--- NOTE | 2020-07-16 06:16 | NUR ---
Problems reprioritized. Patient report given, questions answered & plan of care reviewed with Celina PENDLETON.
[2020-07-16 06:26] LABS: BASOPHILS % (AUTO) 0.1 % (0-1); EOSINOPHILS % (AUTO) 0 % (0-6); HEMATOCRIT 48.1 % (42.0-52.0); HEMOGLOBIN 15.8 g/dl (14.0-17.9); LYMPHOCYTES # (AUTO) 0.7 X10'3 (1.1-4.8); LYMPHOCYTES % (AUTO) 9.8 % (21-51); MEAN CORPUSCULAR HEMOGLOBIN 29.3 PG (27.0-31.0); MEAN CORPUSCULAR HGB CONC 32.8 g/dL (33.0-36.5); MEAN CORPUSCULAR VOLUME 89.2 FL (78-98); MEAN PLATELET VOLUME 7.5 FL (7.4-10.4); MONOCYTES # (AUTO) 0.1 X10'3 (0-0.9); MONOCYTES % (AUTO) 2.1 % (2-12); NEUTROPHILS # (AUTO) 5.8 X10'3 (1.8-7.7); PLATELET COUNT 254 X10'3 (140-440); RED BLOOD COUNT 5.39 X10'6 (4.70-6.10); RED CELL DISTRIBUTION WIDTH 14.2 % (11.5-14.5); WHITE BLOOD COUNT 6.6 X10'3 (4.5-11.0)
[2020-07-16] MEDS: K and/or MAG REPLACEMENT MC SCH (07:05)
[2020-07-16] MEDS: furosemide 40mg/4ml inj IV SCH (07:52)
[2020-07-16] MEDS: apixaban 5mg tablet PO SCH (07:55)
[2020-07-16] MEDS: metoprolol tartrate 25mg tablet PO SCH (07:56)
[2020-07-16] MEDS ORDERED: CefTRIAXone 1000mg IM Kit (w/lidocaine diluent) IM SCH (08:00)
[2020-07-16] MEDS ORDERED: CefTRIAXone/D5W-Rocephin 1gm 50 ML IV SCH (08:00)
[2020-07-16] MEDS: insulin Lispro (HumaLOG) vial - multi-dose SQ SCH ×2 (09:15→13:52)
[2020-07-16 11:00] VITALS: BP 117/68
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
--- NOTE | 2020-07-16 14:39 | NUR ---
PAGER ID: [phone] MESSAGE: patient Sukhwinder VerdugoJosh room 1092G has left AMA. Celina ext [phone]
[2020-07-16] MEDS ORDERED: lactobacillus rhamnosus 10,000 MMU CELLS/CAPSULE PO SCH (20:00)
== END 2020-07-16 14:37 | disposition left against medical advice (07) | DRG 133 ==
LOC: ER 11:18 → ED HOLD 13:24 → UNDOADMIN 14:40 → PCU 3S 17:24
PROVIDERS: ADMIT Internal Medicine; ATTEND Internal Medicine
PROC: 5A09357 Assistance with Respiratory Ventilation, Less than 24 Consecutive Hours, Continuous Positive Airway Pressure (ICD-10-PCS; principal; 2020-07-15)
PROC: BW241ZZ Computerized Tomography (CT Scan) of Chest and Abdomen using Low Osmolar Contrast (ICD-10-PCS; 2020-07-15)
DX: J96.21 Acute and chronic respiratory failure with hypoxia (principal); E11.65 Type 2 diabetes mellitus with hyperglycemia; E66.01 Morbid (severe) obesity due to excess calories; I48.91 Unspecified atrial fibrillation; I11.0 Hypertensive heart disease with heart failure; I50.9 Heart failure, unspecified; E86.0 Dehydration; I48.92 Unspecified atrial flutter; J43.9 Emphysema, unspecified; J22 Unspecified acute lower respiratory infection; E78.5 Hyperlipidemia, unspecified; L03.116 Cellulitis of left lower limb; L03.115 Cellulitis of right lower limb; Z53.29 Procedure and treatment not carried out because of patient's decision for other reasons; G47.30 Sleep apnea, unspecified; F15.90 Other stimulant use, unspecified, uncomplicated; R00.0 Tachycardia, unspecified; Z59.0 Homelessness; Z91.19 Patient's noncompliance with other medical treatment and regimen; Z68.42 Body mass index [BMI] 45.0-49.9, adult; Z79.899 Other long term (current) drug therapy; Z79.4 Long term (current) use of insulin
CPT/HCPCS: 36415; 36600; 71045; 71260; 80053; 80061; 80305; 80320; 81001; 82803; 82948; 83036; 83605; 83735; 83880; 84145; 84484; 85018; 85025; 87040; 87081; 93005; 94640; 94660; 94760; 99291; G0378; J0696; J1650; J1815; J1940; J2930; J7030; Q9967

== ENCOUNTER 2020-07-25 11:25 | Inpatient (IN) | payer MEDICAID ==
[~2020-07-25] VITALS: Ht 188 cm; Wt 159.1 kg
[2020-07-25] MEDS ORDERED: ipratropium/albuterol 3ml nebule NEB ONE (12:05)
[2020-07-25] MEDS ORDERED: insulin regular, human 10 units/0.1 ml syringe IV ONE (12:25)
[2020-07-25 12:34] LABS: BASOPHILS % (AUTO) 0.4 % (0-1); EOSINOPHILS # (AUTO) 0.2 X10'3 (0-0.9); EOSINOPHILS % (AUTO) 2.4 % (0-6); HEMATOCRIT 47.5 % (42.0-52.0); HEMOGLOBIN 15.4 g/dl (14.0-17.9); LYMPHOCYTES # (AUTO) 1.5 X10'3 (1.1-4.8); LYMPHOCYTES % (AUTO) 19.2 % (21-51); MEAN CORPUSCULAR HEMOGLOBIN 29.4 PG (27.0-31.0); MEAN CORPUSCULAR HGB CONC 32.5 g/dL (33.0-36.5); MEAN CORPUSCULAR VOLUME 90.5 FL (78-98); MEAN PLATELET VOLUME 7.8 FL (7.4-10.4); MONOCYTES # (AUTO) 0.5 X10'3 (0-0.9); MONOCYTES % (AUTO) 6.9 % (2-12); NEUTROPHILS # (AUTO) 5.4 X10'3 (1.8-7.7); NEUTROPHILS % (AUTO) 71.1 % (42-75); PLATELET COUNT 205 X10'3 (140-440); RED BLOOD COUNT 5.25 X10'6 (4.70-6.10); RED CELL DISTRIBUTION WIDTH 14.4 % (11.5-14.5); WHITE BLOOD COUNT 7.6 X10'3 (4.5-11.0)
[2020-07-25 12:46] LABS: PARTIAL THROMBOPLASTIN TIME 25 SECONDS (22-32)
[2020-07-25] MEDS ORDERED: CefTRIAXone/D5W-Rocephin 1gm 50 ML IV ONE (13:05)
[2020-07-25 13:12] LABS: ALANINE AMINOTRANSFERASE 24 U/L (12-78); ALBUMIN 2.7 G/DL (3.4-5.0); ALBUMIN/GLOBULIN RATIO 0.7 (1.1-1.5); ALKALINE PHOSPHATASE 90 IU/L (46-116); ANION GAP 3 (8-16); ASPARTATE AMINO TRANSFERASE 10 U/L (10-37); BILIRUBIN,TOTAL 0.2 MG/DL (0.1-1.0); BLOOD UREA NITROGEN 13 MG/DL (7-18); CALCIUM 8.7 MG/DL (8.5-10.1); CHLORIDE 98 MMOL/L (99-107); CREATININE 0.81 MG/DL (0.60-1.10); MAGNESIUM 1.7 MG/DL (1.5-2.4); POTASSIUM 4.4 MMOL/L (3.5-5.1); SODIUM 135 MMOL/L (135-145); TOTAL CARBON DIOXIDE 33.6 MMOL/L (24-32); TOTAL PROTEIN 6.6 G/DL (6.4-8.2); eGFR > 90 ML/MIN
[2020-07-25 13:18] LABS: GLUCOSE 511 MG/DL (70-104)
[2020-07-25] MEDS ORDERED: normal saline 1000ML IV soln IVB ONE (13:35)
[2020-07-25 13:45] LABS: D-DIMER 0.22 MG/L FEU (0-0.50)
[2020-07-25 13:47] LABS: CLARITY,URINE CLEAR (Clear); COLOR,URINE YELLOW (Yellow); GLUCOSE, URINE >=1000 mg/dl (Neg); KETONES,URINE NEGATIVE (Neg); LEUKOCYTE ESTERASE ,URINE NEGATIVE (Neg); NITRITES, URINE NEGATIVE (Neg); OCCULT BLOOD,URINE NEGATIVE (Neg); PH,URINE 6.5 (4.8-8.0); PROTEIN,URINE NEGATIVE (Neg); UROBILINOGEN,URINE 0.2 E.U/dL (0.2-1.0)
[2020-07-25 13:50] LABS: UA COLLECTION TYPE VOIDED
[2020-07-25 14:06] LABS: BACTERIA,URINE FEW /HPF (Neg); RBC,URINE 0-2 /HPF (0-2); SQUAMOUS EPITHELIAL CELL,UR MODERATE /LPF (FEW); WBC,URINE 0-4 /HPF (0-4)
[2020-07-25 14:27] LABS: ABG BASE EXCESS 0.3 mmol/L (-2.0-2.0); ABG HCO3 26.7 mmol/L (22.0-26.0); ABG OXYGEN SATURATION 95.3 % (94-97); ABG PCO2 (T) 49.5 mmHg (35.0-48.0); ABG PO2 (T) 75.8 mmHg (75.0-100.0); ALLEN'S TEST POSITIVE; FCOHb 1.2 % (0.0-3.9); FLOW 4 L/min; FO2Hb 94.2 % (94-97); TOTAL HEMOGLOBIN 15.5 G/dl (14.0-18.0)
[2020-07-25] MEDS ORDERED: NO HOME MEDS (16:03)
[2020-07-25] MEDS ORDERED: magnesium 4gm in 100ml NS 100 ML IV PRN (16:05)
[2020-07-25] MEDS ORDERED: dextrose ORAL solution 15 GM/59 ML bottle PO PRN ×2 (16:05)
[2020-07-25] MEDS ORDERED: mag hydrox/Alum hydrox/simeth 30ml oral suspension PO PRN (16:05)
[2020-07-25] MEDS ORDERED: HYDROcodone/acetaminophen 5mg/325mg tablet PO PRN (16:05)
[2020-07-25] MEDS ORDERED: magnesium 2GM in 50ml NS 50 ML IV PRN (16:05)
[2020-07-25] MEDS ORDERED: glucagon, human recombinant 1mg kit SUBCUT PRN (16:05)
[2020-07-25] MEDS ORDERED: MESSAGE TO PHARMACY PO ONE (16:05)
[2020-07-25] MEDS ORDERED: potassium Cl 40MEQ/1/2NS 520ml 520 ML IV PRN ×2 (16:05)
[2020-07-25] MEDS ORDERED: potassium Cl 20 mEq SR tablet PO PRN ×2 (16:05)
[2020-07-25] MEDS ORDERED: diphenhydrAMINE 25mg capsule PO PRN (16:05)
[2020-07-25] MEDS ORDERED: dextrose 50%-water 50ml dispensing syringe IV PRN ×2 (16:05)
[2020-07-25] MEDS ORDERED: acetaminophen 325mg tablet PO PRN ×2 (16:05)
[2020-07-25] MEDS ORDERED: magnesium Cl slow-release 64mg tablet PO PRN (16:05)
[2020-07-25] MEDS ORDERED: methylPREDNISolone sod succ 125mg/2ml vial IV ONE (16:05)
[2020-07-25] MEDS ORDERED: magnesium hydroxide 30ml (MOM) UD suspension PO PRN (16:05)
[2020-07-25] MEDS ORDERED: morphine 2 MG/ML inj. syringe IV PRN ×2 (16:05)
[2020-07-25] MEDS ORDERED: acetaminophen 650mg rectal suppository RC PRN (16:05)
[2020-07-25] MEDS ORDERED: HYDROcodone/acetaminophen 10/325mg tab PO PRN (16:05)
[2020-07-25] MEDS ORDERED: ipratropium/albuterol 3ml nebule NEB PRN (16:05)
[2020-07-25] MEDS ORDERED: bisacodyl 10mg suppository rectal RC PRN (16:05)
[2020-07-25] MEDS ORDERED: ondansetron/PF 4mg/2ml inj IV PRN (16:05)
[2020-07-25] MEDS: normal saline 1000ml 1,000 ML IV SCH (16:40)
[2020-07-25 17:01] LABS: ETHANOL < 0.010 GM/DL (0.0-0.010)
--- NOTE | 2020-07-25 19:46 | NUR ---
received report from brandee PENDLETON from ER. Pt brought up on [facility] by rn. pt transferred from [facility] to bed with a cane
[2020-07-25 19:50] VITALS: BP 144/101
[2020-07-25] MEDS: ipratropium/albuterol 3ml nebule NEB SCH ×2 (19:55→23:20)
[2020-07-25] MEDS ORDERED: K and/or MAG REPLACEMENT MC SCH (20:00)
[2020-07-25] MEDS ORDERED: insulin glargine (Lantus) pen - multi-dose SQ SCH (21:00)
[2020-07-25] MEDS: methylPREDNISolone sod succ/PF 40mg inj. IV SCH (21:15)
[2020-07-25] MEDS: pantoprazole 40 MG vial IV SCH (21:15)
[2020-07-25] MEDS: heparin, porcine 5000 units/ml vial SQ SCH (21:15)
[2020-07-25] MEDS: metoprolol succinate 25mg (24-HOUR) SR. Tablet PO SCH (21:16)
[2020-07-25] MEDS: insulin Lispro (HumaLOG) vial - multi-dose SQ SCH (21:50)
[2020-07-25 22:00] VITALS: BP 149/103
--- NOTE | 2020-07-25 22:01 | NUR ---
attempted to dart pt, pt kept falling back asleep
[2020-07-26] MEDS: methylPREDNISolone sod succ/PF 40mg inj. IV SCH ×2 (01:39→08:07)
[2020-07-26 02:12] LABS: ALANINE AMINOTRANSFERASE 27 U/L (12-78); ALBUMIN 2.7 G/DL (3.4-5.0); ALBUMIN/GLOBULIN RATIO 0.7 (1.1-1.5); ALKALINE PHOSPHATASE 92 IU/L (46-116); ANION GAP 2 (8-16); ASPARTATE AMINO TRANSFERASE 14 U/L (10-37); BILIRUBIN,TOTAL 0.4 MG/DL (0.1-1.0); BLOOD UREA NITROGEN 16 MG/DL (7-18); CALCIUM 8.3 MG/DL (8.5-10.1); CHLORIDE 97 MMOL/L (99-107); CREATININE 0.84 MG/DL (0.60-1.10); GLUCOSE 438 MG/DL (70-104); POTASSIUM 5.2 MMOL/L (3.5-5.1); SODIUM 134 MMOL/L (135-145); TOTAL CARBON DIOXIDE 34.8 MMOL/L (24-32); TOTAL PROTEIN 6.8 G/DL (6.4-8.2); eGFR > 90 ML/MIN
[2020-07-26 02:14] LABS: CHOL/HDL RATIO 3.7 (0.00-4.99); CHOLESTEROL 239 MG/DL (0-200); HDL CHOLESTEROL 65 MG/DL (35-60); LDL CHOLESTEROL 128 MG/DL (50-100); MAGNESIUM 1.7 MG/DL (1.5-2.4); PHOSPHORUS 4.4 MG/DL (2.3-4.5); TRIGLYCERIDES 159 MG/DL (20-135)
[2020-07-26 02:21] LABS: BASOPHILS % (AUTO) 0.1 % (0-1); EOSINOPHILS % (AUTO) 0.2 % (0-6); HEMOGLOBIN 15.8 g/dl (14.0-17.9); LYMPHOCYTES # (AUTO) 0.4 X10'3 (1.1-4.8); LYMPHOCYTES % (AUTO) 4.7 % (21-51); MEAN CORPUSCULAR HEMOGLOBIN 29.6 PG (27.0-31.0); MEAN CORPUSCULAR HGB CONC 32.9 g/dL (33.0-36.5); MEAN CORPUSCULAR VOLUME 90.1 FL (78-98); MEAN PLATELET VOLUME 7.8 FL (7.4-10.4); MONOCYTES # (AUTO) 0.1 X10'3 (0-0.9); MONOCYTES % (AUTO) 0.7 % (2-12); NEUTROPHILS # (AUTO) 8.8 X10'3 (1.8-7.7); NEUTROPHILS % (AUTO) 94.3 % (42-75); PLATELET COUNT 199 X10'3 (140-440); RED BLOOD COUNT 5.33 X10'6 (4.70-6.10); RED CELL DISTRIBUTION WIDTH 14.1 % (11.5-14.5); WHITE BLOOD COUNT 9.3 X10'3 (4.5-11.0)
[2020-07-26] MEDS: normal saline 1000ml 1,000 ML IV SCH ×2 (02:48→02:59)
--- NOTE | 2020-07-26 03:12 | NUR ---
pt refused 2 am vital signs
[2020-07-26] MEDS: ipratropium/albuterol 3ml nebule NEB SCH ×3 (03:14→11:12)
[2020-07-26 06:00] VITALS: BP 118/71
--- NOTE | 2020-07-26 06:00 | NUR ---
Patient in room PCU 3016. I have received report from Korey PENDLETON and had the opportunity to ask questions and assume patient care.
--- NOTE | 2020-07-26 06:13 | NUR ---
Problems reprioritized. Patient report given, questions answered & plan of care reviewed with allyssa rn.
[2020-07-26] MEDS ORDERED: azithromycin 250mg tablet PO SCH (08:00)
[2020-07-26] MEDS ORDERED: lisinopril 5mg tablet PO SCH (08:00)
[2020-07-26] MEDS ORDERED: CefTRIAXone/D5W-Rocephin 1gm 50 ML IV SCH (08:00)
[2020-07-26] MEDS ORDERED: atorvastatin 10mg tablet PO SCH (08:00)
[2020-07-26] MEDS: metoprolol succinate 25mg (24-HOUR) SR. Tablet PO SCH (08:08)
[2020-07-26 08:09] VITALS: BP_SYST 118
[2020-07-26] MEDS: heparin, porcine 5000 units/ml vial SQ SCH (08:09)
[2020-07-26] MEDS: pantoprazole 40 MG vial IV SCH (08:09)
--- NOTE | 2020-07-26 08:11 | NUR ---
Pt with A1c 11.0%, recently admitted and seen by ZULLY 07/16 for written and verbal DM education. RD contact information provided at that visit. No further education planned at this time. Will continue to follow. Addendum: 07/26/20 at [address] Amended: Links added.
[2020-07-26] MEDS ORDERED: aspirin 81mg tablet.DR PO SCH (08:30)
[2020-07-26] MEDS: insulin Lispro (HumaLOG) vial - multi-dose SQ SCH (09:28)
--- NOTE | 2020-07-26 11:12 | NUR ---
When working with physical therapy, patient verbalized suicidal ideation. Paged Dr Vargas to notify: PAGER ID: [phone] MESSAGE: [phone] [facility]: Pt verbalizing suicidal ideation: "I just want to get out of here, take a gun and shoot myself in the head." Also aerobic blood culture on 07/25 positive for gram+ cocci in clusters. Thanks Carlene PENDLETON [phone]
--- NOTE | 2020-07-26 11:32 | NUR ---
PAGER ID: [phone] MESSAGE: [phone] - [facility] Patient is yelling and pulled out IV. Trying to leave AMA. Security on the way. Please call back - Carlene [phone]
--- NOTE | 2020-07-26 11:48 | NUR ---
PAGER ID: [phone] MESSAGE: Re: Josh Sukhwinder. Room: 3016B. Are you alright with Pt leaving AMA? Pt did state "he doesn't care if he lives". -Layo [facility][id number] -Dr. Vargas paged concerning Pt wanting to leave AMA
--- NOTE | 2020-07-26 11:50 | NUR ---
Pt stated that he wanted to leave AMA. Pt also states that he "Doesn't care if he lives anymore and I don't want want to be here and want to leave". Dr. Vargas was paged concerning the the Pt's remarks. Pt then became emotionally upset and again stated that "he wanted to leave". Security was called just in case, as the Pt was beginning to become irritated and raise his voice. Dr. Vargas was again paged at 1152, again stating that the Pt wanted to leave AMA and that he states "I don't care if I live". Dr. Vargas called and stated that the "Pt has been admitted many times and always states the same thing". Dr. Vargas stated that he was alright with the Pt signing out and leaving AMA. Pt then was presented with the AMA form, which he signed, and escorted downstairs by security to front entrance where he left.
--- NOTE | 2020-07-26 11:52 | NUR ---
miller head contacted Dr Vargas about him leaving AMA. Per miller head, Dr Vargas stated pt could leave AMA. Pt signed AMA paperwork and was escorted off the floor by security.
== END 2020-07-26 11:52 | disposition left against medical advice (07) | DRG 133 ==
LOC: ER 11:26 → ED HOLD 16:02 → PCU 3S 19:35
PROVIDERS: ADMIT Family Medicine; ATTEND Family Medicine
DX: J96.21 Acute and chronic respiratory failure with hypoxia (principal); J18.9 Pneumonia, unspecified organism; I11.0 Hypertensive heart disease with heart failure; E87.2 Acidosis; I50.32 Chronic diastolic (congestive) heart failure; E11.65 Type 2 diabetes mellitus with hyperglycemia; E66.01 Morbid (severe) obesity due to excess calories; E78.5 Hyperlipidemia, unspecified; F12.10 Cannabis abuse, uncomplicated; F17.210 Nicotine dependence, cigarettes, uncomplicated; I87.2 Venous insufficiency (chronic) (peripheral); J43.9 Emphysema, unspecified; Z20.822 Contact with and (suspected) exposure to COVID-19; Z59.0 Homelessness; Z66 Do not resuscitate; Z79.899 Other long term (current) drug therapy; Z91.19 Patient's noncompliance with other medical treatment and regimen
CPT/HCPCS: 36415; 36600; 71045; 80053; 80061; 80320; 81001; 82009; 82803; 82948; 83605; 83735; 83880; 84100; 84145; 84443; 84484; 85018; 85025; 85379; 85610; 85730; 87040; 87081; 87502; 87503; 87635; 93005; 93306; 94640; 94760; 96361; 96374; 96375; 97116; 97161; 97530; 99285; C9113; C9803; G0378; J0696; J1644; J1815; J2920; J2930; J7030

== ENCOUNTER 2020-07-26 14:36 | Inpatient (IN) | payer MEDICAID ==
[~2020-07-26] VITALS: Ht 188 cm; Wt 172.4 kg
[~2020-07-26 14:36] MED LIST changes: -BUDE10.27 PO; -FURO-149 PO; -FURO40TA4 PO; -GLIP10TA11 PO; -HUM10VIA SQ; +NO HOME MEDS; -RISP4TAB73 PO
--- NOTE | 2020-07-26 15:06 | NUR ---
Dr Rojo gave verbal order to do 2 view chest xray, pt left AMA today around noon from upstairs
[2020-07-26] MEDS ORDERED: normal saline 1000ML IV soln IVB ONE (15:55)
[2020-07-26 16:38] LABS: BASOPHILS % (AUTO) 0.1 % (0-1); EOSINOPHILS % (AUTO) 0 % (0-6); HEMATOCRIT 45.5 % (42.0-52.0); HEMOGLOBIN 14.4 g/dl (14.0-17.9); LYMPHOCYTES # (AUTO) 0.7 X10'3 (1.1-4.8); LYMPHOCYTES % (AUTO) 6.1 % (21-51); MEAN CORPUSCULAR HEMOGLOBIN 28.7 PG (27.0-31.0); MEAN CORPUSCULAR HGB CONC 31.7 g/dL (33.0-36.5); MEAN CORPUSCULAR VOLUME 90.5 FL (78-98); MEAN PLATELET VOLUME 8.1 FL (7.4-10.4); MONOCYTES # (AUTO) 0.6 X10'3 (0-0.9); MONOCYTES % (AUTO) 4.8 % (2-12); NEUTROPHILS # (AUTO) 10.8 X10'3 (1.8-7.7); PLATELET COUNT 208 X10'3 (140-440); RED BLOOD COUNT 5.03 X10'6 (4.70-6.10); RED CELL DISTRIBUTION WIDTH 14.1 % (11.5-14.5); WHITE BLOOD COUNT 12.1 X10'3 (4.5-11.0)
[2020-07-26 16:48] LABS: CLARITY,URINE CLEAR (Clear); COLOR,URINE YELLOW (Yellow); GLUCOSE, URINE >=1000 mg/dl (Neg); KETONES,URINE NEGATIVE (Neg); LEUKOCYTE ESTERASE ,URINE NEGATIVE (Neg); NITRITES, URINE NEGATIVE (Neg); OCCULT BLOOD,URINE TRACE-INTACT (Neg); PH,URINE 5.5 (4.8-8.0); PROTEIN,URINE NEGATIVE (Neg); UROBILINOGEN,URINE 0.2 E.U/dL (0.2-1.0)
[2020-07-26 16:50] LABS: UA COLLECTION TYPE CLN CATCH MIDSTREAM
[2020-07-26 16:51] LABS: BACTERIA,URINE NONE SEEN /HPF (Neg); MUCUS STRANDS NONE SEEN /LPF (Neg); RBC,URINE 0-2 /HPF (0-2); SQUAMOUS EPITHELIAL CELL,UR NONE SEEN /LPF (FEW); WBC,URINE NONE SEEN /HPF (0-4)
[2020-07-26 16:57] LABS: ALANINE AMINOTRANSFERASE 22 U/L (12-78); ALBUMIN 2.6 G/DL (3.4-5.0); ALBUMIN/GLOBULIN RATIO 0.7 (1.1-1.5); ALKALINE PHOSPHATASE 82 IU/L (46-116); ANION GAP 4 (8-16); ASPARTATE AMINO TRANSFERASE 15 U/L (10-37); BILIRUBIN,TOTAL 0.2 MG/DL (0.1-1.0); BLOOD UREA NITROGEN 24 MG/DL (7-18); CALCIUM 8.2 MG/DL (8.5-10.1); CHLORIDE 96 MMOL/L (99-107); CREATININE 1.09 MG/DL (0.60-1.10); MAGNESIUM 1.6 MG/DL (1.5-2.4); POTASSIUM 5.4 MMOL/L (3.5-5.1); SODIUM 131 MMOL/L (135-145); TOTAL CARBON DIOXIDE 31.3 MMOL/L (24-32); TOTAL PROTEIN 6.4 G/DL (6.4-8.2); eGFR 70 ML/MIN
[2020-07-26 17:00] LABS: GLUCOSE 638 MG/DL (70-104)
[2020-07-26 17:04] LABS: URINE AMPHETAMINE SCREEN POSITIVE (Neg); URINE BARBITUATE SCREEN NEGATIVE (Neg); URINE BENZODIAZEPINES SCREEN NEGATIVE (Neg); URINE CANNABINOID SCREEN NEGATIVE (Neg); URINE COCAINE SCREEN NEGATIVE (Neg); URINE METHADONE SCREEN NEGATIVE (Neg); URINE OPIATE SCREEN NEGATIVE (Neg); URINE PHENCYCLIDINE SCREEN NEGATIVE (Neg)
[2020-07-26] MEDS ORDERED: insulin regular, human 10 units/0.1 ml syringe IV ONE (17:05)
[2020-07-26] MEDS ORDERED: acetaminophen 325mg tablet PO PRN (17:20)
[2020-07-26] MEDS ORDERED: mag hydrox/Alum hydrox/simeth 30ml oral suspension PO PRN (17:20)
[2020-07-26] MEDS ORDERED: magnesium hydroxide 30ml (MOM) UD suspension PO PRN (17:20)
[2020-07-26] MEDS ORDERED: ondansetron/PF 4mg/2ml inj IV PRN (17:20)
--- NOTE | 2020-07-26 18:12 | NUR ---
BG 402mg/dl,paged Dr. Gonzalez.
[2020-07-26] MEDS: ipratropium/albuterol 3ml nebule NEB SCH ×2 (19:11→23:47)
[2020-07-26] MEDS: normal saline 1000ml 1,000 ML IV SCH (19:40)
--- NOTE | 2020-07-26 19:50 | NUR ---
Patient in ED. I have received report from Laura PENDLETON in the ED and had the opportunity to ask questions and will assume care when pt arrives to the unit.
[2020-07-26] MEDS ORDERED: cefepime 2g/NS 100ml ADVANTAGE 100 ML IV SCH (20:00)
[2020-07-26 20:10] VITALS: BP 112/73
--- NOTE | 2020-07-26 20:10 | NUR ---
pt arrived to unit, placed on tele oriented to room and floor flow.
[2020-07-26] MEDS: methylPREDNISolone sod succ 125mg/2ml vial IV SCH (20:54)
[2020-07-26] MEDS: heparin, porcine 5000 units/ml vial SQ SCH (20:56)
--- NOTE | 2020-07-26 21:30 | NUR ---
Pt stable vss wnl, ambulates with SBA to bathroom with iv pole or cane. Pt acknowledges information but does not always follow directions. He can, he chooses not at times and he will let you know that. Pt is very non compliant with Meds and procedures. Refused to be darted and insisted he wanted to just sleep. Will continue to monitor
[2020-07-26] MEDS ORDERED: dextrose 50%-water 50ml dispensing syringe IV PRN ×2 (21:45)
[2020-07-26] MEDS ORDERED: glucagon, human recombinant 1mg kit SUBCUT PRN (21:45)
[2020-07-26] MEDS ORDERED: MESSAGE TO PHARMACY PO ONE (21:45)
[2020-07-26] MEDS ORDERED: dextrose ORAL solution 15 GM/59 ML bottle PO PRN ×2 (21:45)
[2020-07-26 22:00] VITALS: BP 135/79
[2020-07-26] MEDS: insulin Lispro (HumaLOG) vial - multi-dose SQ SCH (22:36)
[2020-07-27 02:00] VITALS: BP 142/81
[2020-07-27] MEDS: ipratropium/albuterol 3ml nebule NEB SCH ×2 (03:09→07:00)
[2020-07-27] MEDS: normal saline 1000ml 1,000 ML IV SCH (03:20)
[2020-07-27 06:00] VITALS: BP 109/48
--- NOTE | 2020-07-27 06:00 | NUR ---
Patient in room PCU 3026. I have received report from Sheryl PENDLETON and had the opportunity to ask questions and assume patient care.
--- NOTE | 2020-07-27 06:00 | NUR ---
Patient in room PCU 3026. I have received report from Sheryl PENDLETON and had the opportunity to ask questions and assume patient care.
--- NOTE | 2020-07-27 06:22 | NUR ---
Problems reprioritized. Patient report given, questions answered & plan of care reviewed with Carlene RN
[2020-07-27 06:33] LABS: BASOPHILS % (AUTO) 0 % (0-1); EOSINOPHILS % (AUTO) 0 % (0-6); HEMATOCRIT 44.3 % (42.0-52.0); HEMOGLOBIN 14.4 g/dl (14.0-17.9); LYMPHOCYTES # (AUTO) 0.7 X10'3 (1.1-4.8); LYMPHOCYTES % (AUTO) 5.2 % (21-51); MEAN CORPUSCULAR HGB CONC 32.5 g/dL (33.0-36.5); MEAN CORPUSCULAR VOLUME 89.3 FL (78-98); MEAN PLATELET VOLUME 7.6 FL (7.4-10.4); MONOCYTES # (AUTO) 0.5 X10'3 (0-0.9); MONOCYTES % (AUTO) 3.8 % (2-12); NEUTROPHILS # (AUTO) 12.5 X10'3 (1.8-7.7); PLATELET COUNT 211 X10'3 (140-440); RED BLOOD COUNT 4.96 X10'6 (4.70-6.10); WHITE BLOOD COUNT 13.8 X10'3 (4.5-11.0)
[2020-07-27 06:34] LABS: ALBUMIN 2.7 G/DL (3.4-5.0); ANION GAP 2 (8-16); BLOOD UREA NITROGEN 22 MG/DL (7-18); BUN/CREATININE RATIO 31.4 (5.4-32.0); CALCIUM 8.6 MG/DL (8.5-10.1); CHLORIDE 99 MMOL/L (99-107); GLUCOSE 374 MG/DL (70-104); POTASSIUM 4.7 MMOL/L (3.5-5.1); SODIUM 136 MMOL/L (135-145); eGFR > 90 ML/MIN
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
--- NOTE | 2020-07-27 07:58 | NUR ---
Tray in room. Pt states he will be leaving as soon as he is done eating.
[2020-07-27] MEDS: insulin Lispro (HumaLOG) vial - multi-dose SQ SCH (10:14)
[2020-07-27] MEDS: methylPREDNISolone sod succ 125mg/2ml vial IV SCH (10:17)
[2020-07-27] MEDS: heparin, porcine 5000 units/ml vial SQ SCH (10:17)
--- NOTE | 2020-07-27 10:35 | NUR ---
Pt had decided to stay and wanted to sleep. This RN went in to put on tele leads and administer AM medications since it appeared that patient was more calm. Gave heparin and insulin. Pt had apparently pulled out not just one, but the second IV as well at some point this AM . Notified pt that he needed an IV to receive antibiotics and steroid; pt agreed. When this RN was about to start IV, pt jumped up and started screaming, continuing to refer to this RN as "You bitch." Pt screams that he wants to leave AMA. Educated pt on risks of leaving including worsening infection, respiratory failure and . Pt verbalized understanding of risks, signed paperwork and walked off floor. No IV in place. Security called to escort patient out of hospital.
--- NOTE | 2020-07-27 10:36 | NUR ---
Notified Dr Gonzalez: PAGER ID: [phone] MESSAGE: [phone] Josh: Pt just left AMA. I educated him on risks of leaving and he signed the AMA paperwork. - Carlene [phone]
--- NOTE | 2020-07-27 16:25 | NUR ---
PT CALLED REGARDING RX BEING CALLED INTO A PHARMACY. PT HAD BEEN ADMITTED AND PCU WAS CALLED TO FIND OUT IF PT WAS STILL HERE OR DC AND IF ANY MEDICATIONS WERE CALLED INTO A PHARMACY FOR HIM. PER NURSE ON PCU, PT LEFT AMA THIS AM AT APPROX 1000 AND DUE TO PT LEAVING AMA THERE WERE NO MEDICATIONS CALLED INTO A PHARMACY FOR HIM. PT WAS CALLED AND MSG LEFT TO CALL BACK. PT RETURNED CALL AND PROCEEDED TO STATES THAT HIS RX WAS CALLED INTO THE WRONG [facility]. PT WAS INFORMED, PER PCU; THAT SINCE HE LEFT AMA THAT THERE WAS NO MEDICATIONS CALLED IN FOR HIM WHEN HE LEFT AMA. PT THEN HUNG UP THE PHONE.
[2020-07-27] MEDS ORDERED: insulin glargine (Lantus) pen - multi-dose SQ SCH (21:00)
== END 2020-07-27 10:31 | disposition left against medical advice (07) | DRG 720 ==
LOC: ER 14:37 → ED HOLD 17:20 → EDBEDREQ 19:24 → PCU 3S 20:10
PROVIDERS: ADMIT Family Medicine; ATTEND Family Medicine
DX: A41.9 Sepsis, unspecified organism (principal); J96.20 Acute and chronic respiratory failure, unspecified whether with hypoxia or hypercapnia; I11.0 Hypertensive heart disease with heart failure; J18.9 Pneumonia, unspecified organism; I95.9 Hypotension, unspecified; I50.32 Chronic diastolic (congestive) heart failure; Z68.42 Body mass index [BMI] 45.0-49.9, adult; Z53.29 Procedure and treatment not carried out because of patient's decision for other reasons; E11.9 Type 2 diabetes mellitus without complications; E78.5 Hyperlipidemia, unspecified; F15.10 Other stimulant abuse, uncomplicated; F17.210 Nicotine dependence, cigarettes, uncomplicated; J43.9 Emphysema, unspecified; E66.9 Obesity, unspecified; G47.30 Sleep apnea, unspecified; Z59.0 Homelessness
CPT/HCPCS: 36415; 71046; 80048; 80053; 80305; 81001; 82948; 83735; 83880; 84145; 85025; 87081; 93005; 94640; 94760; 96361; 96374; 99285; G0378; J0692; J1644; J1815; J2930; J7030

== ENCOUNTER 2020-08-02 20:39 | Emergency (ER) | payer MEDICAID ==
[~2020-08-02] VITALS: Ht 188 cm; Wt 172.7 kg
[2020-08-02 20:56] VITALS: BP 144/81
--- NOTE | 2020-08-02 21:05 | NUR ---
BG 388 in triage
[2020-08-02] MEDS ORDERED: insulin regular, human 10 units/0.1 ml syringe SQ ONE (21:45)
[2020-08-04] MEDS ORDERED: METH-797 PO (12:08)
== END 2020-08-02 22:59 | disposition home or self-care (01) ==
LOC: ER 20:40
DX: E11.65 Type 2 diabetes mellitus with hyperglycemia (principal); R06.02 Shortness of breath; I11.0 Hypertensive heart disease with heart failure; I50.9 Heart failure, unspecified; J44.9 Chronic obstructive pulmonary disease, unspecified; G47.30 Sleep apnea, unspecified; E11.9 Type 2 diabetes mellitus without complications; F15.90 Other stimulant use, unspecified, uncomplicated; Z91.14 Patient's other noncompliance with medication regimen; Z86.14 Personal history of Methicillin resistant Staphylococcus aureus infection; Z98.890 Other specified postprocedural states; Z59.0 Homelessness; Z56.0 Unemployment, unspecified
CPT/HCPCS: 82948; 96372; 99283; J1815

== ENCOUNTER → 2020-08-04 | Emergency (ER) | payer MEDICAID ==
[~2020-08-04] VITALS: Ht 188 cm; Wt 169.3 kg
[~2020-08-04] MED LIST changes: +METH-797 PO; +acetaminophen 325mg tablet PO ONE
[2020-08-04 11:52] VITALS: BP 120/74
--- NOTE | 2020-08-04 11:55 | NUR ---
PATIENT HERE FOR LOW BACK PAIN WITH SPASM. LEONELA STATES "TOO HOT TO MAKE IT" "I GUESS THEY DONT ADMIT PATIENT TO THE HOSPITAL ANYMORE" " I FEEEL LIKE I'M DYING" "I GUESS ILL GO TO THE SNF: BEING IN SNF IS BETTER THAN BEING OUTSIDE IN THIS HEAT"
--- NOTE | 2020-08-04 12:08 | NUR ---
LEONELA STATED "I JUST WANT A PLACE WHERE I CAN GO AND SIT" I SUGGESTED THE [facility]. LEONELA STATED "I GUESS ILL GO TRY THE OTHER HOSPITAL"
--- NOTE | 2020-08-04 12:33 | NUR ---
PT DISCHARGED AND PT WAS LEAVING PT WAS NOTED STATING "IM GOING TO THE OTHER HOSPITAL TO BE ADMITTED, I JUST NEED A PLACE TO SLEEP". [facility] WAS CALLED AND NOTIFIED OF PT'S INTENTIONS OF VISITING THEM
== END | disposition home or self-care (01) ==
LOC: ER 10:10
DX: S16.1XXA Strain of muscle, fascia and tendon at neck level, initial encounter (principal); S39.012A Strain of muscle, fascia and tendon of lower back, initial encounter; I11.0 Hypertensive heart disease with heart failure; I50.9 Heart failure, unspecified; J43.9 Emphysema, unspecified; E11.9 Type 2 diabetes mellitus without complications; M54.6 Pain in thoracic spine; F15.90 Other stimulant use, unspecified, uncomplicated; Z86.14 Personal history of Methicillin resistant Staphylococcus aureus infection; Z87.01 Personal history of pneumonia (recurrent); Z56.0 Unemployment, unspecified; Z59.0 Homelessness; Z79.899 Other long term (current) drug therapy; X58.XXXA Exposure to other specified factors, initial encounter; Y93.89 Activity, other specified; Y92.89 Other specified places as the place of occurrence of the external cause; Y99.8 Other external cause status
CPT/HCPCS: 99283

== ENCOUNTER 2020-08-13 11:55 | Emergency (ER) | payer MEDICAID ==
[~2020-08-13] VITALS: Ht 193 cm; Wt 169.2 kg
[~2020-08-13 11:55] MED LIST changes: -acetaminophen 325mg tablet PO ONE
[2020-08-13] MEDS ORDERED: normal saline 1000ML IV soln IVB ONE (16:30)
[2020-08-13 16:57] LABS: BASOPHILS % (AUTO) 0.4 % (0-1); EOSINOPHILS # (AUTO) 0.2 X10'3 (0-0.9); EOSINOPHILS % (AUTO) 2.4 % (0-6); HEMATOCRIT 45.8 % (42.0-52.0); HEMOGLOBIN 15.1 g/dl (14.0-17.9); LYMPHOCYTES # (AUTO) 1.4 X10'3 (1.1-4.8); LYMPHOCYTES % (AUTO) 17.9 % (21-51); MEAN CORPUSCULAR HEMOGLOBIN 29.3 PG (27.0-31.0); MEAN CORPUSCULAR VOLUME 88.8 FL (78-98); MEAN PLATELET VOLUME 7.4 FL (7.4-10.4); MONOCYTES # (AUTO) 0.6 X10'3 (0-0.9); MONOCYTES % (AUTO) 7.3 % (2-12); NEUTROPHILS # (AUTO) 5.8 X10'3 (1.8-7.7); PLATELET COUNT 208 X10'3 (140-440); RED BLOOD COUNT 5.15 X10'6 (4.70-6.10); RED CELL DISTRIBUTION WIDTH 14.4 % (11.5-14.5); WHITE BLOOD COUNT 8.1 X10'3 (4.5-11.0)
[2020-08-13 17:10] LABS: ALANINE AMINOTRANSFERASE 23 U/L (12-78); ALBUMIN 2.9 G/DL (3.4-5.0); ALBUMIN/GLOBULIN RATIO 0.7 (1.1-1.5); ALKALINE PHOSPHATASE 96 IU/L (46-116); ANION GAP 4 (8-16); ASPARTATE AMINO TRANSFERASE 15 U/L (10-37); BILIRUBIN,TOTAL 0.5 MG/DL (0.1-1.0); BLOOD UREA NITROGEN 15 MG/DL (7-18); BUN/CREATININE RATIO 20.5 (5.4-32.0); CALCIUM 8.8 MG/DL (8.5-10.1); CHLORIDE 99 MMOL/L (99-107); CREATININE 0.73 MG/DL (0.60-1.10); GLUCOSE 293 MG/DL (70-104); POTASSIUM 4.3 MMOL/L (3.5-5.1); SODIUM 136 MMOL/L (135-145); TOTAL PROTEIN 7.1 G/DL (6.4-8.2); eGFR > 90 ML/MIN
[2020-08-13] MEDS ORDERED: insulin regular, human 10 units/0.1 ml syringe SQ ONE (17:35)
[2020-08-13] MEDS ORDERED: POTA20TA19 PO (17:37)
[2020-08-13] MEDS ORDERED: FURO80TA3 PO (17:37)
[2020-08-13 18:14] VITALS: BP 126/94
== END 2020-08-13 18:18 | disposition home or self-care (01) ==
LOC: ER 11:56
DX: J81.1 Chronic pulmonary edema (principal); E86.0 Dehydration; M79.89 Other specified soft tissue disorders; I11.0 Hypertensive heart disease with heart failure; I50.9 Heart failure, unspecified; J43.9 Emphysema, unspecified; E11.9 Type 2 diabetes mellitus without complications; F15.90 Other stimulant use, unspecified, uncomplicated; Z86.14 Personal history of Methicillin resistant Staphylococcus aureus infection; Z87.01 Personal history of pneumonia (recurrent); Z98.890 Other specified postprocedural states; Z56.0 Unemployment, unspecified; Z59.0 Homelessness; Z79.2 Long term (current) use of antibiotics; Z79.899 Other long term (current) drug therapy
CPT/HCPCS: 36415; 71045; 80053; 82948; 83880; 84484; 85025; 93005; 96372; 99285; J1815; J7030

== ENCOUNTER 2020-10-11 10:19 | Emergency (ER) | payer MEDICAID ==
[~2020-10-11] VITALS: Ht 188 cm; Wt 168.2 kg
[~2020-10-11 10:19] MED LIST changes: +FURO80TA3 PO
--- NOTE | 2020-10-11 12:01 | NUR ---
Patient states that he wants to drive his car of a bridge.
[2020-10-11] MEDS ORDERED: normal saline 1000ML IV soln IVB ONE (13:05)
[2020-10-11 13:41] LABS: BASOPHILS % (AUTO) 0.6 % (0-1); EOSINOPHILS # (AUTO) 0.2 X10'3 (0-0.9); EOSINOPHILS % (AUTO) 2.6 % (0-6); HEMATOCRIT 43.4 % (42.0-52.0); HEMOGLOBIN 14.4 g/dl (14.0-17.9); LYMPHOCYTES # (AUTO) 1.6 X10'3 (1.1-4.8); LYMPHOCYTES % (AUTO) 21.2 % (21-51); MEAN CORPUSCULAR HEMOGLOBIN 29.6 PG (27.0-31.0); MEAN CORPUSCULAR HGB CONC 33.1 g/dL (33.0-36.5); MEAN CORPUSCULAR VOLUME 89.4 FL (78-98); MEAN PLATELET VOLUME 7.8 FL (7.4-10.4); MONOCYTES # (AUTO) 0.7 X10'3 (0-0.9); MONOCYTES % (AUTO) 8.7 % (2-12); NEUTROPHILS # (AUTO) 5.2 X10'3 (1.8-7.7); NEUTROPHILS % (AUTO) 66.9 % (42-75); PLATELET COUNT 218 X10'3 (140-440); RED BLOOD COUNT 4.85 X10'6 (4.70-6.10); RED CELL DISTRIBUTION WIDTH 13.9 % (11.5-14.5); WHITE BLOOD COUNT 7.7 X10'3 (4.5-11.0)
[2020-10-11 14:07] LABS: URINE AMPHETAMINE SCREEN NEGATIVE (Neg); URINE BARBITUATE SCREEN NEGATIVE (Neg); URINE BENZODIAZEPINES SCREEN NEGATIVE (Neg); URINE CANNABINOID SCREEN POSITIVE (Neg); URINE COCAINE SCREEN NEGATIVE (Neg); URINE METHADONE SCREEN NEGATIVE (Neg); URINE OPIATE SCREEN NEGATIVE (Neg); URINE PHENCYCLIDINE SCREEN NEGATIVE (Neg)
[2020-10-11 14:23] VITALS: BP 134/89
--- NOTE | 2020-10-11 14:34 | NUR ---
patient is frequently moaning and yelling out. states he is uncomfortable in bed and doesn't know why he came here.
[2020-10-11 14:45] LABS: ALANINE AMINOTRANSFERASE 27 U/L (12-78); ALBUMIN 2.9 G/DL (3.4-5.0); ALBUMIN/GLOBULIN RATIO 0.8 (1.1-1.5); ALKALINE PHOSPHATASE 99 IU/L (46-116); ANION GAP 6 (8-16); ASPARTATE AMINO TRANSFERASE 16 U/L (10-37); BILIRUBIN,TOTAL 0.2 MG/DL (0.1-1.0); BLOOD UREA NITROGEN 18 MG/DL (7-18); BUN/CREATININE RATIO 26.9 (5.4-32.0); CALCIUM 8.7 MG/DL (8.5-10.1); CHLORIDE 99 MMOL/L (99-107); CREATININE 0.67 MG/DL (0.60-1.10); GLUCOSE 391 MG/DL (70-104); POTASSIUM 4.7 MMOL/L (3.5-5.1); SODIUM 138 MMOL/L (135-145); TOTAL CARBON DIOXIDE 33.1 MMOL/L (24-32); TOTAL PROTEIN 6.7 G/DL (6.4-8.2); eGFR > 90 ML/MIN
[2020-10-11 14:59] LABS: ETHANOL < 0.010 GM/DL (0.0-0.010)
--- NOTE | 2020-10-11 15:30 | NUR ---
Patient resting on gurney, patient snoring and eyes are closed. Patient respirations are at a rate of 18 breaths/min.
--- NOTE | 2020-10-11 16:26 | NUR ---
While I was assisting care of another patient, patient walked out of ER with IV in place. Patient was out in lobby and had been stopped by screener in lob. Per Gerald PCT and Celina RN, patient had been cursing the parking lot and wanting to leave. Celina PENDLETON had stopped patient and pulled out PIV prior to patient leaving parking lot. However, Gerald and Celina were unaware that patient was placed on a hold.
--- NOTE | 2020-10-11 16:46 | NUR ---
Called william parekh, to notify regarding elopement, case # [id number]
== END 2020-10-11 16:51 | disposition left against medical advice (07) ==
LOC: ER 10:20
DX: R45.851 Suicidal ideations (principal); R60.0 Localized edema; M54.89 Other dorsalgia; I11.0 Hypertensive heart disease with heart failure; I50.9 Heart failure, unspecified; J43.9 Emphysema, unspecified; F32.9 Major depressive disorder, single episode, unspecified; E11.9 Type 2 diabetes mellitus without complications; F17.200 Nicotine dependence, unspecified, uncomplicated; F12.90 Cannabis use, unspecified, uncomplicated; F15.90 Other stimulant use, unspecified, uncomplicated; Z87.01 Personal history of pneumonia (recurrent); Z86.14 Personal history of Methicillin resistant Staphylococcus aureus infection; Z98.890 Other specified postprocedural states; Z56.0 Unemployment, unspecified; Z59.0 Homelessness; Z79.899 Other long term (current) drug therapy
CPT/HCPCS: 36415; 80053; 80305; 80320; 82009; 83880; 84484; 85025; 96360; 99285; J7030